=== PATIENT | female | born 1955 | race Caucasian/White ===

== ENCOUNTER 2020-12-18 16:56 | Emergency (ER) | payer MEDICAID, SELFPAY ==
--- NOTE | ~2020-12-18 | XR_ITS ---
EXAMINATION: XR PELVIS CLINICAL INFORMATION: Fall COMPARISON: Lumbar spine radiographs 05/09/2013 TECHNIQUE: AP view of the pelvis. FINDINGS: The visualized left femur is grossly abnormal with sclerotic change overlying the area of the greater trochanter. This may be due to remote trauma. No definite acute fracture is seen on this single view. Degenerative changes present in the hips, right greater than left. XR/XR pelvis 1-2V IMPRESSION: No definite acute pelvic fracture is seen. The abnormal left femur is probably chronic. However, If there is concern about the left hip, would recommend left hip films.
[2020-12-18 17:01] VITALS: BP 126/62; PULSE 60; RESP 18; TEMP 37.1; O2SAT 96; BMI 25.8
--- NOTE | 2020-12-18 17:26 | ED.FALL ---
HPI - Fall General Chief Complaint: Fall Stated Complaint: fall Time Seen by Provider: 12/18/20 17:08 Source: EMS Mode of arrival: EMS Limitations: no limitations History of Present Illness HPI Narrative: 65 yo female with past medical history of bipolar 1 disorder, brain damage, anoxic, cataracts, concussion, dysphagia, etoh abuse, GERD (gastroesophageal reflux disease) , Idiopathic generalized epilepsy, kyphosis (acquired) (postural), osteoporosis, presbyopia, spondylosis, urinary incontinence, UTI (urinary tract infection) here with complaints of left hip pain. Unfortunately the patient is not a reliable historian due to previous brain injury. Called and spoke to nurse at [facility]. Per nursing patient was sitting in her wheelchair and slipped out of the wheelchair landing on her buttocks. This was witnessed by staff. There was no head injury or loss of consciousness. At that time she was complaining of left hip pain. This occurred at 0245 this morning. Per staff patient is at her mental status baseline MD complaint: fall Related Data Allergies Allergy/AdvReac Type Severity Reaction Status Date / Time Fish Containing Products Allergy Mild UNKNOWN Unverified 07/01/20 16:50 [Fish Product Derivatives] lactose [Lactose] Allergy Mild UNKNOWN Unverified 07/01/20 16:50 Shellfish Allergy Mild UNKNOWN Uncoded 07/01/20 16:50 Review of Systems Review of Systems: Yes Unobtainable due to mental status (Patient is confused which is her baseline) Neurologic: Denies Abnormal speech present and Reports confusion Psychiatric: Psychiatric: Reports confusion PMFSH Past Medical History Attestation statement: The following information was validated with the patient. Source: old records reviewed and nursing notes reviewed Medical History (Updated 12/18/20 @ 18:27 by Serge Feldman NP) Bipolar 1 disorder Brain damage, anoxic Cataract Concussion Dysphagia ETOH abuse GERD (gastroesophageal reflux disease) Idiopathic generalized epilepsy Kyphosis (acquired) (postural) Osteoporosis Presbyopia Spondylosis Urinary incontinence UTI (urinary tract infection) Social History Social History Alcohol intake: former Smoking Status: Never smoker Use of substances other than those prescribed or required for medical reasons: No Advance Directives: No Advance Directives Information Provided: No Physical Exam Vital Signs: Vital Signs: Last Vital Signs Temp 98.7 F 12/18/20 17:01 Pulse 60 12/18/20 17:01 Resp 18 12/18/20 17:01 BP 126/62 12/18/20 17:01 Pulse Ox 96 12/18/20 17:01 Body Mass Index 25.8 Const: Other: Limited exam due to baseline mental status General: no acute distress and confusion Orientation/consciousness: confusion Limitations: altered mental status HENMT: Head: Yes normal to inspection Ears: hearing grossly normal bilaterally General nose exam: Normal external nose present Face and sinus: Yes normal facial exam Mouth: Normal oral and palatal mucosa present Throat: Yes posterior oropharynx normal Eyes: General: appearance normal, both eyes and all related structures Pupils: Equal, round and reactive pupils present Neck: Other: No midline tenderness, step-offs or deformities. Full range of motion Neck: Yes normal visual inspection Chest: Chest palpation & inspection: normal inspection of the chest Resp: Effort & Inspection: normal respiratory effort Auscultation: clear to auscultation bilaterally Cardio: Rate: regular rate Rhythm: regular rhythm Peripheral pulses: Peripheral pulses 2+ throughout GI: Inspection: Yes normal to inspection Palpation (GI): Soft to palpation and nontender Auscultation: normal bowel sounds Back/Spine/Pelvis: Thoracic/Lumbar Spine: thoracic and lumbar spine normal to inspection Skin: General skin exam: no rashes or lesions noted Neuro: General: moves all extremities, normal sensation to monofilament and confusion Cranial nerves: Yes Equal, round and reactive pupils present Speech: No Abnormal speech present Gait exam (Neuro): Normal gait present Sensory Exam: Normal double simultaneous stimulation for sensation Extrem: Other: Patient is able to move the left lower extremity through full range of motion with no pain elicited. Neurovascularly intact distally. No obvious deformity, shortening or rotation. On exam the patient has no palpable tenderness over the left hip or pelvis and the pelvis is stable. General: Yes normal to inspection Right upper extremity: normal to inspection and full ROM Left upper extremity: normal to inspection and full ROM Right lower extremity: normal to inspection and full ROM Left lower extremity: normal to inspection and full ROM Course Course Course Narrative: Mechanical fall witnessed by staff with no head injury. Patient then at her mental status baseline per staff at [facility]. Will check imaging of left hip due to reports of trauma and pain reported to staff although no pain here on exam. 183-X-rays show No definite acute pelvic fracture is seen. The abnormal left femur is probably chronic. However, If there is concern about the left hip, would recommend left hip films. Unfortunately patient refusing to allow us to do additional hip films. Reviewed films with Dr Neal who agrees no acute fracture or dislocation. I re-evaluated the patient and she appears in NAD, with no palpable tenderness. Plan for discharge back to [facility]. MDM - Fall Medical Records Attestation: I reviewed the patient's medical records. Lab Data Attestation: I reviewed the patient's lab results. Imaging Data hip x-ray: Attestation: I personally reviewed and interpreted this imaging study as follows: Radiologist's impression: [facility] [place], [place] [address]STqf ReportSigned Patient: Abby GarciaMR#: [id number]: [id number]:[id number]/Sex: 65 / FADM Date: 12/18/20Loc: HO.EDAttending Dr: Ordering Physician: SERGE FELDMAN NP Date of Service: 12/18/20 Procedure(s): XR pelvis 1-2V Accession Number(s): [id number] cc: SERGE FELDMAN NP~ EXAMINATION: XR PELVIS CLINICAL INFORMATION: Fall COMPARISON: Lumbar spine radiographs 05/09/2013 TECHNIQUE: AP view of the pelvis. FINDINGS: The visualized left femur is grossly abnormal with sclerotic change overlying the area of the greater trochanter. This may be due to remote trauma. No definite acute fracture is seen on this single view. Degenerative changes present in the hips, right greater than left. XR/XR pelvis 1-2V IMPRESSION: No definite acute pelvic fracture is seen. The abnormal left femur is probably chronic. However, If there is concern about the left hip, would recommend left hip films. Discharge Plan Discharge Clinical Impression: Contusion Qualifiers: Encounter type: initial encounter Contusion area: hip Patient Disposition: Xfer SNF Instructions: Hip Contusion (ED) Additional Instructions: X-rays show no acute fracture or dislocation Referrals: Fitz Hernandez DO [Primary Care Provider] - 2 days Interventions: ED Discharge Assessment Last Done: 12/18/20 20:00 Discharge Date/Time: 12/18/20 20:05
--- NOTE | 2020-12-18 18:16 | PC.NURSE ---
pt appears to be sitting at the edge of the bed when this rn waking by, pt placed back safely into stretcher by this rn and pct. pt denies any pain att.
== END 2020-12-18 20:05 | disposition skilled nursing facility (03) ==
PROVIDERS: Emergency Provider Internal Medicine; PCP Hospitalist
DX: S70.02XA Contusion of left hip, initial encounter (principal); W05.0XXA Fall from non-moving wheelchair, initial encounter; F31.9 Bipolar disorder, unspecified; Z87.820 Personal history of traumatic brain injury; F10.10 Alcohol abuse, uncomplicated; Z87.440 Personal history of urinary (tract) infections; Y93.9 Activity, unspecified; Y92.129 Unspecified place in nursing home as the place of occurrence of the external cause; Y99.9 Unspecified external cause status
CPT/HCPCS: 72170; 99283; 99284

== ENCOUNTER 2021-01-04 07:39 | Outpatient (REF) | payer MEDICAID, SELFPAY ==
--- NOTE | ~2021-01-04 | CT_ITS ---
EXAMINATION: CT HIP WITHOUT CONTRAST, LEFT CLINICAL INFORMATION: Left hip pain status post fall COMPARISON: Left hip x-ray 12/18/2020 TECHNIQUE: Axial 2 mm thin and reformatted 2 mm thin sagittal and coronal images of left hip were obtained. This CT examination was performed using dose optimization techniques as appropriate, variously including the following: *Automated exposure control *Adjustment of mA and/or kV according to patient size (this includes techniques or standardized protocols for targeted exams where dose is matched to indication/reason for exam; i.e. extremities or head) *Use of iterative reconstruction technique DLP: 228 mGy-cm FINDINGS: There is a comminuted burst fracture involving the entire left acetabular roof, anterior and posterior and superior segments. There is mild to moderate displacement of superior acetabular fracture fragments.. There is abnormal joint effusion. The left femoral head, neck and the proximal femur is intact. There is hypertrophic bony changes involving the greater tuberosity likely related to old injury. Also visualized is comminuted fracture involving the left inferior pubic rami/ischial tuberosity junction. Adjacent to the fracture is a hypodensity seen in the soft tissues questioning small hemorrhage. CT/CT hip LT wo con IMPRESSION: Comminuted burst fracture involving the internal left acetabular roof including the anterior, posterior and superior segments. There is displacement of the superior fracture fragments. There is abnormal joint effusion. Comminuted acute fracture junction of inferior pubic ramus and ischium. Suspect small inferior 1.5 cm hematoma. There is no fracture involving the left femur. There is hypertrophic bony changes along the left greater trochanter likely old healed injury.
== END 2021-01-04 07:40 | disposition home or self-care (01) ==
LOC: HO.CT 07:39
PROVIDERS: PCP Hospitalist; Visit Provider Hospitalist
DX: M25.552 Pain in left hip (principal)
CPT/HCPCS: 73700

== ENCOUNTER 2021-01-10 13:20 | Outpatient (REF) | payer MEDICAID, SELFPAY ==
--- NOTE | ~2021-01-10 | US_ITS ---
EXAMINATION: US BREAST, BILATERAL CLINICAL INFORMATION: Unable to perform mammography COMPARISON: December 23, 2019 and November 21, 2018 TECHNIQUE: High-resolution grayscale sonography of the breasts was performed by a technologist with a high-frequency linear transducer following a standardized protocol. All 4 quadrants and the axilla were examined on each side. The retroareolar region was examined bilaterally FINDINGS: On the images submitted for review, no suspicious mass, area of architectural distortion, complex cyst or other sonographically suspicious lesion is identified in either breast. US/US breast LT complete IMPRESSION: No sonographic evidence of malignancy in either breast. ASSESSMENT: Right breast: BI-RADS 1 - negative.. Left breast: BI-RADS 1 - negative. RECOMMENDATIONS: Continued yearly screening. This patient?s information was entered in to a reminder system with a target due date for their next mammogram.
--- NOTE | ~2021-01-10 | US_ITS ---
EXAMINATION: US BREAST, right CLINICAL INFORMATION: Unable to perform mammography COMPARISON: December 23, 2019 and November 21, 2018 TECHNIQUE: High-resolution grayscale sonography of the breasts was performed by a technologist with a high-frequency linear transducer following a standardized protocol. All 4 quadrants and the axilla were examined on each side. The retroareolar region was examined bilaterally FINDINGS: On the images submitted for review, no suspicious mass, area of architectural distortion, complex cyst or other sonographically suspicious lesion is identified in either breast. US/US breast RT complete IMPRESSION: No sonographic evidence of malignancy in either breast. ASSESSMENT: Right breast: BI-RADS 1 - negative.. Left breast: BI-RADS 1 - negative. RECOMMENDATIONS: Continued yearly screening. This patient?s information was entered in to a reminder system with a target due date for their next mammogram.
== END 2021-01-10 13:21 | disposition home or self-care (01) ==
LOC: HO.MAMMO 13:20
PROVIDERS: Visit Provider Hospitalist
DX: Z12.39 Encounter for other screening for malignant neoplasm of breast (principal)
CPT/HCPCS: 76641

== ENCOUNTER 2021-06-07 10:18 | Outpatient (REF) | payer MEDICAID, SELFPAY ==
--- NOTE | ~2021-06-07 | MM_ITS ---
EXAMINATION: BONE DENSITOMETRY CLINICAL INDICATION: Osteoporosis. COMPARISON: Previous BD dated 06/03/2019 and baseline BD dated 12/03/2014. TECHNIQUE: Using a Photodigm DXA System (software version: 13.1) manufactured by [employer], dual-energy x-ray absorptiometry was performed of the lumbar spine and left hip. The images are of good technical quality. Summary results are attached. FINDINGS: AP SPINE L1-L4 (excluding L3): The data of L1-L4 has been changed to exclude the L3 vertebral body, because degenerative changes and/or possible vertebral augmentation at this level may cause overestimation of lumbar spine density. Current: BMD 0.969 g/cm2, Z-score -0.1, T-score -1.7, osteopenia, 4.4% increase from previous, 3.6% increase from baseline (<5% change is not significant). Prior: BMD 0.928 g/cm2. Baseline: BMD 0.935 g/cm2. LEFT FEMUR, NECK: Current: BMD 0.998 g/cm2, Z-score 1.2, T-score -0.3, normal. Prior: BMD 0.857 g/cm2. Baseline: BMD 0.992 g/cm2. LEFT FEMUR, TOTAL: Current: BMD 0.886 g/cm2, Z-score 0.2, T-score -1.0, normal, 29.1% decrease from previous, 43.8% decrease from baseline (<5% change is not significant). Prior: BMD 1.250 g/cm2. Baseline: BMD 1.577 g/cm2. IDENTIFIED RISK FACTORS: Height loss, osteoporosis, history of fracture (adult), anticonvulsant, menopause. HISTORY OF FRACTURE: Humerus. Other. There is increased intravertebral body density noted at L3 when compared with prior exam 2019. This could be related to changes from vertebral augmentation. If vertebral augmentation is not been performed, then further imaging of the spine with plain films or noncontrast CT lumbar spine would be suggested to assess for bony lesion. MEDICATIONS: Calcium supplements or multivitamin, vitamin D, bisphosphonates. MM/XR DEXA axial skeleton IMPRESSION: 1. Increased density within the vertebral body L3, new from prior exam 2019. Recommend correlation with past history, such as vertebral augmentation at this level to explain the finding. Otherwise, if clinically indicated, further evaluation of the lumbar spine would be recommended with radiographs or noncontrast CT lumbar spine to further assess. 2. DIAGNOSIS: Osteopenia based on the lowest T-score value of -1.7 in the lumbar spine applying World Health Organization criteria. 3. 10-YEAR FRACTURE RISK PREDICTION, FRAX: Major osteoporotic fracture (clinical spine, forearm, hip or shoulder) 10.6%. Hip fracture 0.4%. 4. Treatment Recommendations: NOF guidelines recommend consideration for treatment in postmenopausal women and men age 50 and older presenting with the following: -A hip or vertebral (clinical or morphometric) fracture. -T-score less than or equal to -2.5 at the femoral neck or spine after appropriate evaluation to exclude secondary causes. -Low bone mass at the hip or spine and a 10-year fracture probability by FRAX of greater than or equal to 3% for hip fracture or greater than or equal to 20% for major osteoporotic fracture based on the [place] adapted WHO algorithm. 5. Other Recommendations: All treatment decisions require clinical judgment and consideration of individual patient factors, including patient preferences, comorbidities, previous drug use, risk factors not captured in the FRAX model (e.g. frailty, falls, vitamin D deficiency, increased bone turnover, interval significant decline in bone density) and possible under or overestimation of fracture risk by FRAX. Additional medical evaluation for secondary cause of low bone mineral density may be appropriate. FUTURE SCAN RECOMMENDATION: People with diagnosed cases of osteoporosis or at high risk for fracture should have regular bone mineral density tests. For patients eligible for Medicare, routine testing is allowed once every 2 years. The testing frequency can be increased to one year for patients who have rapidly progressing disease, those who are receiving or discontinuing medical therapy to restore bone mass, or have additional risk factors.
== END 2021-06-07 10:19 | disposition home or self-care (01) ==
LOC: HO.MAMMO 10:18
PROVIDERS: PCP Hospitalist; Visit Provider Hospitalist
DX: Z13.820 Encounter for screening for osteoporosis (principal); M81.0 Age-related osteoporosis without current pathological fracture; Z78.0 Asymptomatic menopausal state; Z79.899 Other long term (current) drug therapy; Z87.81 Personal history of (healed) traumatic fracture
CPT/HCPCS: 77080

== ENCOUNTER 2022-01-13 11:58 | Outpatient (REF) | payer MEDICAID, SELFPAY ==
--- NOTE | ~2022-01-13 | US_ITS ---
EXAMINATION: US BREAST, BILATERAL CLINICAL INFORMATION: Patient unable to tolerate mammography and is wheelchair bound. Bilateral breast ultrasound. COMPARISON: January 10, 2021, December 23, 2019, and November 21, 2018 MAMMOGRAPHY: Patient's last mammogram was February 03, 2015 TECHNIQUE: High-resolution grayscale sonography of the breasts was performed by a technologist with a high-frequency linear transducer following a standardized protocol. All 4 quadrants and the axilla were examined on each side. The retroareolar region was examined bilaterally FINDINGS: On the images submitted for review, no suspicious mass, area of architectural distortion, complex cyst or other sonographically suspicious lesion is identified in either breast. US/US breast RT complete IMPRESSION: No sonographic evidence of malignancy in either breast. ASSESSMENT: Right breast: BI-RADS 1 - negative.. Left breast: BI-RADS 1 - negative. RECOMMENDATIONS: Continue mammographic screening. This patient?s information was entered in to a reminder system with a target due date for their next mammogram.
--- NOTE | ~2022-01-13 | US_ITS ---
EXAMINATION: US BREAST, BILATERAL CLINICAL INFORMATION: Patient unable to tolerate mammography and is wheelchair bound. Bilateral breast ultrasound. COMPARISON: January 10, 2021, December 23, 2019, and November 21, 2018 MAMMOGRAPHY: Patient's last mammogram was February 03, 2015 TECHNIQUE: High-resolution grayscale sonography of the breasts was performed by a technologist with a high-frequency linear transducer following a standardized protocol. All 4 quadrants and the axilla were examined on each side. The retroareolar region was examined bilaterally FINDINGS: On the images submitted for review, no suspicious mass, area of architectural distortion, complex cyst or other sonographically suspicious lesion is identified in either breast. US/US breast LT complete IMPRESSION: No sonographic evidence of malignancy in either breast. ASSESSMENT: Right breast: BI-RADS 1 - negative.. Left breast: BI-RADS 1 - negative. RECOMMENDATIONS: Continue mammographic screening. This patient?s information was entered in to a reminder system with a target due date for their next mammogram.
== END 2022-01-13 11:59 | disposition home or self-care (01) ==
LOC: HO.MAMMO 11:58
PROVIDERS: Visit Provider Hospitalist
DX: Z12.31 Encounter for screening mammogram for malignant neoplasm of breast (principal); Z99.3 Dependence on wheelchair
CPT/HCPCS: 76641

== ENCOUNTER 2022-04-07 14:50 | Emergency (ER) | payer MEDICAID, SELFPAY ==
--- NOTE | ~2022-04-07 | CT_ITS ---
EXAMINATION: CT FACIAL BONES WITHOUT CONTRAST CLINICAL INFORMATION: Trauma. Rule out fracture. COMPARISON: None TECHNIQUE: Axial images through the facial bones without contrast. Sagittal and coronal technologist workstation were performed. This CT examination was performed using dose optimization techniques as appropriate, variously including the following: *Automated exposure control *Adjustment of mA and/or kV according to patient size (this includes techniques or standardized protocols for targeted exams where dose is matched to indication/reason for exam; i.e. extremities or head) *Use of iterative reconstruction technique DLP: 282 mGy-cm FINDINGS: Exam is limited due to patient positioning. No fracture or dislocation is seen. There is complete soft tissue opacification of the right maxillary and frontal sinus and partial soft tissue opacification of the right side of the sphenoid sinus. There is adjacent expansion of the bone and cortical thickening. This probably represents severe chronic sinusitis. Differential would include a primary bone lesion such as fibrous dysplasia and secondary sinusitis. There is abnormal soft tissue opacification of the right ostiomeatal complex. There is partial soft tissue opacification of the right ethmoid air cells. There is soft tissue opacification of the right frontoethmoidal recess There is bilateral zaire bullosa. There is deviation of the nasal septum to the left. Left-sided paranasal sinuses are clear. There is poor dentition. Mastoid air cells and middle ears are clear. The temporomandibular joints are normal. There is evidence of generalized atrophy. Visualized intracranial structures are otherwise normal. There is evidence of atherosclerotic disease. CT/CT facial bones wo con IMPRESSION: Limited exam due to patient positioning. No acute fracture or dislocation. Complete soft tissue opacification of the right frontal, maxillary and right side of the sphenoid sinus and changes of the adjacent bone. This probably represents chronic sinusitis. Primary bone process such as fibrous dysplasia of the bone and secondary sinusitis should also be noted.
[2022-04-07 14:54] VITALS: BP 117/56; BP 95/56; PULSE 62; PULSE 70; RESP 18; TEMP 36.5; O2SAT 94; BMI 22.0
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
[2022-04-07 15:47] LABS: MANUAL DIFF FLAG NO
[2022-04-07 15:50] LABS: Basophils Percent Auto 0.5 % (0-2); Eosinophils Absolute Auto 0.1 X10*3/uL (0.0-0.4); Eosinophils Percent Auto 1.4 % (0-4); Hematocrit 34.8 % (37.0-47.0); Hemoglobin 11.4 g/dl (12.0-16.0); Imm Gran Abs Auto 0.01 X10*3/uL (0.00-0.03); Imm Gran Pct Auto 0.2 % (0.0-0.4); Lymphocytes Absolute Auto 1.9 X10*3/uL (1.2-4.9); Lymphocytes Percent Auto 30.3 % (20-40); Mean Corpuscular HGB Conc 32.8 g/dl (31.0-35.0); Mean Corpuscular Volume 97.8 fL (80.0-98.0); Mean Platelet Volume 10.2 fL (9.4-12.3); Monocytes Absolute Auto 0.8 X10*3/uL (0.1-1.2); Monocytes Percent Auto 12.5 % (2-11); Neutrophils Absolute Auto 3.4 x10*3/uL (2.0-8.3); Neutrophils Percent Auto 55.1 % (45-73); Platelet Count 166 X10*3/uL (160-400); Red Blood Count 3.56 X10*6/uL (4.20-5.50); Red Cell Distribution Width 12.2 % (11.0-16.0); White Blood Count 6.2 X10*3/uL (4.8-10.8)
[2022-04-07 16:09] LABS: Alanine Aminotransferase 16 U/L (0-31); Albumin Level 3.3 g/dL (3.5-5.0); Alkaline Phosphatase 72 U/L (39-117); Anion Gap 12 (12-20); Aspartate Amino Transferase 17 U/L (5-31); Bilirubin Total 0.4 mg/dL (0.0-1.0); Blood Urea Nitrogen 17 mg/dL (9-16); Calcium 8.3 mg/dL (8.4-10.2); Carbon Dioxide 26 mmol/L (22-29); Chloride 107 mmol/L (96-108); Creatinine Clr Calc Pharmacy 78.2; Estimated Glomerular Filt Rate > 60; Glucose Random 66 mg/dL (60-115); Potassium 4.1 mmol/L (3.3-5.1); Sodium 141 mmol/L (135-145); Total Protein 6.3 g/dL (6.5-8.0)
[2022-04-07 16:14] LABS: COVID-19 Test Negative (Negative)
--- NOTE | 2022-04-07 17:37 | PC.NURSE ---
Report given to Brian cedeno.
--- NOTE | 2022-04-07 17:42 | PC.NURSE ---
This Us/Pct called [facility] at 1753 and booked a bls Transport for patient to go back to [facility],per Mirlande MURPHY. Spoke with Iva from [facility] around 1900. Charge and rn aware
[2022-04-07 17:44] VITALS: BP 105/62; PULSE 65; RESP 18; O2SAT 95
== END 2022-04-07 20:12 | disposition skilled nursing facility (03) ==
PROVIDERS: Physician Assistant; Emergency Provider Emergency Medicine; PCP Hospitalist
DX: R22.0 Localized swelling, mass and lump, head (principal); Z20.822 Contact with and (suspected) exposure to COVID-19; Z87.820 Personal history of traumatic brain injury; Z79.899 Other long term (current) drug therapy
CPT/HCPCS: 70486; 80053; 85025; 87635; 99283; 99284

== ENCOUNTER 2023-02-12 12:04 | Outpatient (REF) | payer MEDICARE, MEDICAID, SELFPAY ==
--- NOTE | ~2023-02-12 | US_ITS ---
EXAMINATION: US SCREENING ULTRASOUND BREAST, BILATERAL CLINICAL INFORMATION: Patient unable to tolerate mammography. Annual screening breast ultrasound. COMPARISON: Bilateral breast ultrasound 01/13/2022, 01/10/2021, 12/23/2019, 11/21/2018 TECHNIQUE: Ultrasound is performed using grayscale imaging and color Doppler. Imaging is performed to include the four quadrants and retroareolar region. Both breasts are imaged. FINDINGS: Right breast: There is no suspicious finding by ultrasound. There is no cystic or solid mass or focal architectural abnormality. No skin thickening. No edema tracking in soft tissue planes. Left breast: There is no suspicious finding by ultrasound. There is no cystic or solid mass or focal architectural abnormality. No skin thickening. No edema tracking in soft tissue planes. US/US breast RT complete IMPRESSION: -Normal bilateral screening breast ultrasound ASSESSMENT: BI-RADS 1: Negative RECOMMENDATION: Annual bilateral breast screening is able This patient's information was entered into a reminder system with a target due date for their next breast imaging.
--- NOTE | ~2023-02-12 | US_ITS ---
EXAMINATION: US SCREENING ULTRASOUND BREAST, BILATERAL CLINICAL INFORMATION: Patient unable to tolerate mammography. Annual screening breast ultrasound. COMPARISON: Bilateral breast ultrasound 01/13/2022, 01/10/2021, 12/23/2019, 11/21/2018 TECHNIQUE: Ultrasound is performed using grayscale imaging and color Doppler. Imaging is performed to include the four quadrants and retroareolar region. Both breasts are imaged. FINDINGS: Right breast: There is no suspicious finding by ultrasound. There is no cystic or solid mass or focal architectural abnormality. No skin thickening. No edema tracking in soft tissue planes. Left breast: There is no suspicious finding by ultrasound. There is no cystic or solid mass or focal architectural abnormality. No skin thickening. No edema tracking in soft tissue planes. US/US breast LT complete IMPRESSION: -Normal bilateral screening breast ultrasound ASSESSMENT: BI-RADS 1: Negative RECOMMENDATION: Annual bilateral breast screening is able This patient's information was entered into a reminder system with a target due date for their next breast imaging.
== END 2023-02-12 12:05 | disposition home or self-care (01) ==
LOC: HO.MAMMO 12:04
PROVIDERS: Visit Provider Hospitalist
DX: Z12.31 Encounter for screening mammogram for malignant neoplasm of breast (principal)
CPT/HCPCS: 76641

== ENCOUNTER 2023-06-12 13:20 | Outpatient (REF) | payer MEDICARE, MEDICAID, SELFPAY ==
--- NOTE | ~2023-06-12 | MM_ITS ---
EXAMINATION: BONE DENSITOMETRY CLINICAL INDICATION: Osteoporosis. COMPARISON: Previous BD dated 06/07/2021 and baseline BD dated 12/03/2014. TECHNIQUE: Using a [employer] DXA System (software version: 13.1) manufactured by [employer], dual-energy x-ray absorptiometry was performed of the lumbar spine and left hip. The images are of good technical quality. Summary results are attached. FINDINGS: LEFT FEMUR, NECK: Current: BMD 0.929 g/cm2, Z-score 0.6, T-score -0.8, normal. Prior: BMD 0.998 g/cm2. Baseline: BMD 0.992 g/cm2. LEFT FEMUR, TOTAL: Current: BMD 0.878 g/cm2, Z-score 0.0, T-score -1.0, normal, 0.9% decrease from previous, 44.3% decrease from baseline (<5% change is not significant). Prior: BMD 0.886 g/cm2. Baseline: BMD 1.577 g/cm2. AP SPINE L1-L2 (excluding L3 and L4): The data of L1-L4 has been changed to exclude the L3 and L4 vertebral bodies, because degenerative sclerosis at these levels may cause overestimation of lumbar spine density. Current: BMD 1.028 g/cm2, Z-score 0.2, T-score -1.1, osteopenia, 2.6% increase from previous, 4.9% increase from baseline (<5% change is not significant). Prior: BMD 1.002 g/cm2. Baseline: BMD 0.980 g/cm2. IDENTIFIED RISK FACTORS: Menopause, height loss, anticonvulsant, osteoporosis. HISTORY OF FRACTURE: None listed. MEDICATIONS: Multivitamin, vitamin D, bisphosphonate. MM/XR DEXA axial skeleton IMPRESSION: 1. DIAGNOSIS: Osteopenia based on the lowest T-score value of -1.1 in the lumbar spine applying World Health Organization criteria. 2. 10-YEAR FRACTURE RISK PREDICTION, FRAX: Not performed in this patient on estrogen or bone building treatments. 3. Treatment Recommendations: NOF guidelines recommend consideration for treatment in postmenopausal women and men age 50 and older presenting with the following: -A hip or vertebral (clinical or morphometric) fracture. -T-score less than or equal to -2.5 at the femoral neck or spine after appropriate evaluation to exclude secondary causes. -Low bone mass at the hip or spine and a 10-year fracture probability by FRAX of greater than or equal to 3% for hip fracture or greater than or equal to 20% for major osteoporotic fracture based on the [place] adapted WHO algorithm. 4. Other Recommendations: All treatment decisions require clinical judgment and consideration of individual patient factors, including patient preferences, comorbidities, previous drug use, risk factors not captured in the FRAX model (e.g. frailty, falls, vitamin D deficiency, increased bone turnover, interval significant decline in bone density) and possible under or overestimation of fracture risk by FRAX. Additional medical evaluation for secondary cause of low bone mineral density may be appropriate. FUTURE SCAN RECOMMENDATION: People with diagnosed cases of osteoporosis or at high risk for fracture should have regular bone mineral density tests. For patients eligible for Medicare, routine testing is allowed once every 2 years. The testing frequency can be increased to one year for patients who have rapidly progressing disease, those who are receiving or discontinuing medical therapy to restore bone mass, or have additional risk factors.
== END 2023-06-12 13:21 | disposition home or self-care (01) ==
LOC: HO.MAMMO 13:20
PROVIDERS: PCP Hospitalist; Visit Provider Hospitalist
DX: Z13.820 Encounter for screening for osteoporosis (principal); M81.0 Age-related osteoporosis without current pathological fracture; Z78.0 Asymptomatic menopausal state
CPT/HCPCS: 77080

== ENCOUNTER → 2023-06-12 13:30 | Outpatient (BNV) | payer MEDICARE, MEDICAID, SELFPAY | PROVIDERS: PCP Hospitalist; Visit Provider Radiology Diagnostic Radiology | DX: M85.88 Other specified disorders of bone density and structure, other site (principal) | CPT/HCPCS: 77080 ==

== ENCOUNTER 2023-10-02 13:27 | Outpatient (REF) | payer MEDICARE, MEDICAID, SELFPAY ==
--- NOTE | ~2023-10-02 | XR_ITS ---
EXAMINATION: XR HAND, LEFT CLINICAL INFORMATION: Swelling and pain COMPARISON: None available. TECHNIQUE: PA, lateral, and oblique views of the left hand. FINDINGS: Mild degenerative changes first carpometacarpal joint. Mild interphalangeal joint space narrowings. Mild radiocarpal joint space narrowing and sclerosis. No fracture, dislocation or focal soft tissue swelling. XR/XR hand LT 2V IMPRESSION: Mild degenerative changes.
== END 2023-10-02 13:28 | disposition home or self-care (01) ==
LOC: HO.XRAY 13:27
PROVIDERS: PCP Hospitalist; Visit Provider Hospitalist
DX: R60.0 Localized edema (principal); M79.642 Pain in left hand
CPT/HCPCS: 73120

== ENCOUNTER 2024-04-28 11:54 | Outpatient (REF) | payer MEDICARE, MEDICAID, SELFPAY ==
--- NOTE | ~2024-04-28 | US_ITS ---
EXAMINATION: US SCREENING ULTRASOUND BREAST, BILATERAL CLINICAL INFORMATION: Patient unable to tolerate mammography. Annual screening breast ultrasound. COMPARISON: Bilateral breast ultrasound 02/12/2023, 01/13/2022, 01/10/2021, 12/23/2019, 11/21/2018 TECHNIQUE: Ultrasound is performed using grayscale imaging and color Doppler. Imaging is performed to include the four quadrants and retroareolar region. Both breasts are imaged. FINDINGS: Right breast: There is no suspicious finding by ultrasound. There is no cystic or solid mass or focal architectural abnormality. No skin thickening. No edema tracking in soft tissue planes. Left breast: There is no suspicious finding by ultrasound. There is no cystic or solid mass or focal architectural abnormality. No skin thickening. No edema tracking in soft tissue planes. US/US breast BI complete IMPRESSION: -Normal bilateral screening breast ultrasound ASSESSMENT: BI-RADS 1: Negative RECOMMENDATION: Annual bilateral breast screening is able This patient's information was entered into a reminder system with a target due date for their next breast imaging.
== END 2024-04-28 11:55 | disposition home or self-care (01) ==
LOC: HO.MAMMO 11:54
PROVIDERS: PCP Hospitalist; Visit Provider Hospitalist
DX: M47.812 Spondylosis without myelopathy or radiculopathy, cervical region (principal)
CPT/HCPCS: 76641

== ENCOUNTER → 2024-04-28 12:00 | Outpatient (BNV) | payer MEDICARE, MEDICAID, SELFPAY | PROVIDERS: PCP Hospitalist; Visit Provider Radiology Diagnostic Radiology | DX: Z12.31 Encounter for screening mammogram for malignant neoplasm of breast (principal) | CPT/HCPCS: 76641 ==

== ENCOUNTER 2025-06-17 11:57 | Outpatient (REF) | payer MEDICARE, MEDICAID, SELFPAY ==
--- NOTE | ~2025-06-17 | US_ITS ---
EXAMINATION: US SCREENING ULTRASOUND BREAST, BILATERAL CLINICAL INFORMATION: Dense breasts on mammography. Screening ultrasound. Patient unable to tolerate mammography. Annual screening breast ultrasound. COMPARISON: Priors on PACS. TECHNIQUE: Ultrasound is performed using grayscale imaging and color Doppler. Imaging is performed to include the four quadrants and retroareolar region. Both breasts are imaged. FINDINGS: Right breast: There is no suspicious finding by ultrasound. There is no solid mass or focal architectural abnormality. Left breast: There is no suspicious finding by ultrasound. There is no solid mass or focal architectural abnormality. US/US breast BI complete IMPRESSION: No suspicious findings on screening breast ultrasound. ASSESSMENT: BI-RADS 1 - Negative RECOMMENDATION: 1 year F/U This patient's information was entered into a reminder system with a target due date for their next mammogram. Electronically signed by: Mag Jones DO 06/17/2025 03:30 PM EDT
--- OUTSIDE RECORDS SUMMARY | 2025-06-17 14:35 | XMS_ITS | Clinical Summary ---
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 (CMS/HCC V24, CMS/HCC V28); Bipolar disorder, unspecified (CMS/HCC V24, CMS/HCC V28); Other nursing home (current) drug therapy from Last 3 Months Social History Tobacco Use Types Packs/Day Years Used Date Smoking Tobacco: Never Assessed Comments Unknown Sex and Gender Information Value Date Recorded Sex Assigned at Not on file Legal Sex Female 12:29 PM EST Gender Identity Not on file Sexual Orientation Not on file Plan of Treatment Health Maintenance Due Date Last Done Comments Breast Cancer Screening 1955 DTaP,Tdap,and Td Vaccines (1 - Tdap) 1976 Pneumococcal Vaccine: 50+ Ye ars (1 of 1 - PCV) 2007 Zoster Vaccines (1 of 2) 2007 Colorectal Cancer Screening: Colonoscopy 09/12/2022 Hepatitis C Screening 09/12/2022 Medicare Annual Wellness Visit 09/12/2022 Osteoporosis Screening (Bone Density Screening) 09/12/2022 Social Influencers of Health Screening 09/12/2022 Falls Risk Assessment 2022 COVID-19 Vaccine ( - 2023-2 5 season) 2024 Depression Screening 10/15/2024 Influenza Vaccine (#1) 2025 Cholesterol Screening (Lipid Panel) 04/08/2030 04/08/2025 RSV Immunization Adult Patie nts (1 - 1-dose 75+ series) 2032 HIB Vaccines Aged Out No longer eligi ble based on patient's age to complete this topic HPV Vaccines Aged Out No longer eligi ble based on patient's age to complete this topic Hepatitis A Vaccines Aged Out No long er eligible based on patient's age to complete this topic Hepatitis B Vaccines Aged Out No long er eligible based on patient's age to complete this topic IPV Vaccines Aged Out No longer eligi ble based on patient's age to complete this topic MMR Vaccines Aged Out No longer eligi ble based on patient's age to complete this topic Meningococcal ACWY Vaccine Aged Out N o longer eligible based on patient's age to complete this topic Meningococcal B Vaccine Aged Out No l onger eligible based on patient's age to complete this topic RSV Immunization Patients Un jorden 20 months Aged Out No longer eligible b ased on patient's age to complete this topic Varicella Vaccines Aged Out No longer eligible based on patient's age to complete this topic Procedures Procedure Name Priority Date/Time Associated Diagnosis Comments COMPLETE BLOOD COUNT Routine 05/26/2025 6:56 AM EDT Age-related osteoporosis without current pathological fracture SST - GOLD Routine 04/08/2025 6:36 AM EDT Alcohol use, 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 (CMS/HCC V24, CMS/HCC V28) Bipolar disorder, unspecified (CMS/HCC V24, CMS/HCC V28) Other nursing home (current) drug therapy AMMONIA Routine 04/08/2025 6:36 AM EDT Alcohol use, 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 (CMS/HCC V24, CMS/HCC V28) Bipolar disorder, unspecified (CMS/HCC V24, CMS/HCC V28) 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 CARBAMAZEPINE LEVEL, TOTAL Routine 04/08/2025 6:36 AM EDT Alcohol use, 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 (CMS/HCC V24, CMS/HCC V28) Bipolar disorder, unspecified (CMS/HCC V24, CMS/HCC V28) Other nursing home (current) drug therapy LIPID PANEL WITH REFLEX TO DIRECT LDL Routine 04/08/2025 6:36 AM EDT Alcohol use, 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 (CMS/HCC V24, CMS/HCC V28) Bipolar disorder, unspecified (CMS/HCC V24, CMS/HCC V28) Other nursing home (current) drug therapy HEPATIC FUNCTION PANEL Routine 04/08/2025 6:36 AM EDT Alcohol use, 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 (CMS/HCC V24, CMS/HCC V28) Bipolar disorder, unspecified (CMS/HCC V24, CMS/HCC V28) Other nursing home (current) drug therapy COMPREHENSIVE METABOLIC PANEL Routine 04/08/2025 6:36 AM EDT Alcohol use, 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 (CMS/HCC V24, CMS/HCC V28) Bipolar disorder, unspecified (CMS/HCC V24, CMS/HCC V28) 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 from Last 3 Months Results * (ABNORMAL) Complete blood count (05/26/2025 6:56 AM EDT) [facility] WBC 6.0 4.8 - 10.8 K/mcL LAB HEMETOLOGY METHOD 05/26/2025 7:43 AM EDT [facility] RBC 3.90 3.80 - 4.80 M/mcL LAB HEMETOLOGY METHOD 05/26/2025 7:43 AM EDT [facility] LAB Hemoglobin 12.5 11.5 - 16.0 g/dL LAB HEMETOLOGY METHOD 05/26/2025 7:43 AM [facility] LAB Hematocrit 38.1 35.0 - 47.0 % LAB HEMETOLOGY METHOD 05/26/2025 7[facility] MCV 98.7(H) 79.0 - 98.0 FL LAB HEMETOLOGY METHOD 05/26/2025 7:43 AM EDT [facility] MCH 32.4(H) 27.0 - 32.0 pcg LAB HEMETOLOGY METHOD 05/26/2025 7:43 AM [facility] LAB MCHC 32.8 32.0 - 37.0 g/dL LAB HEMETOLOGY METHOD 05/26/2025 7:43 AM EDT [facility] RDW 11.8 11.0 - 15.0 % LAB HEMETOLOGY METHOD 05/26/2025 7:43 AM [facility] Platelets 196 130 - 400 K/mcL LAB HEMETOLOGY METHOD 05/26/2025 7:43 AM [facility] LAB MPV 10.2 7.0 - 11.0 FL LAB HEMETOLOGY METHOD 05/26/2025 7:43 [facility] NRBC 0.0 <1.0 % LAB HEMETOLOGY METHOD 05/26/2025 7:43 AM T [facility] LAB NRBC Absolute 0.00 <0.10 K/mcL LAB HEMETOLOGY METHOD 05/26/2025 7:43 AM [facility] Blood Venous blood specimen / Unknown 05/26/2025 6:56 AM EDT 05/26/2025 7:17 AM EDT us Fitz Hernandez MD LAB BLOOD ORDERABLES Final Resul t [facility] LAB [address] [place] [address], * SST tube (04/08/2025 6:36 AM EDT) Extra Tube Hold for add-ons. 04/08/2025 1:01 PM EDT [facility] LAB Comment:Auto resulted. Blood Venous blood specimen / Unknown 04/08/2025 6:36 AM EDT 04/08/2025 7:05 AM EDT us Fitz Hernandez MD LAB BLOOD ORDERABLES Final Resul t Performing Organization Address City/[facility]/ZIP Co de Phone Number [facility] LAB [address] [place] [address], [place] [phone] * Lipid panel with reflex to direct LDL (04/08/2025 6:36 AM EDT) Cholesterol 168 0 - 200 mg/dL LAB CHEMISTRY METHOD 04/08/2025 7:46 AM [facility] Triglycerides 47 0 - 150 mg/dL LAB CHEMISTRY METHOD 04/08/2025 7:46 AM [facility] HDL 59 >=40 mg/dL LAB CHEMISTRY METHOD 04/08/2025 7:46 AM [facility] LDL Calculated 100 0 - 100 mg/dL LAB CHEMISTRY METHOD 04/08/2025 7:46 AM T [facility] VLDL Cholesterol Mustapha 9.4 mg/dL LAB CHEMISTRY METHOD 04/08/2025 7:46 AM [facility] Non HDL Chol. (LDL+VLDL) 109 <145 mg/dL LAB CHEMISTRY METHOD 04/08/2025 7:46 AM [facility] Chol/HDL Ratio 2.8 0.0 - 4.4 LAB CHEMISTRY METHOD 04/08/2025 7:46 AM [facility] LAB Blood Venous blood specimen / Unknown 04/08/2025 6:36 AM EDT 04/08/2025 7:05 AM EDT us Fitz Hernandez MD LAB BLOOD ORDERABLES Final Resul t Performing Organization Address City/[facility]/ZIP Co de Phone Number [facility] [address] [place] [address], [place] [phone] * Ammonia (04/08/2025 6:36 AM EDT) Pathologist [facility] Ammonia 16 11 - 35 mcmol/L LAB CHEMISTRY METHOD 04/08/2025 7:46 AM EDT [facility] Blood Venous blood specimen / Unknown 04/08/2025 6:36 AM EDT 04/08/2025 7:05 AM EDT us Fitz Hernandez MD LAB BLOOD ORDERABLES Final Resul t Performing Organization Address City/[facility]/ZIP Co de Phone Number [facility] [address] [place] [address], [place] [phone] * (ABNORMAL) Carbamazepine level, total (04/08/2025 6:36 AM EDT) [facility] Carbamazepine Level 6.7(L) 8.0 - 12.0 mcg/mL LAB CHEMISTRY METHOD 04/08/2025 7:46 AM EDT [facility] Blood Venous blood specimen / Unknown 04/08/2025 6:36 AM EDT 04/08/2025 7:05 AM EDT us Fitz Hernandez MD LAB BLOOD ORDERABLES Final Resul t Performing Organization Address City/[facility]/ZIP Co de Phone Number [facility] [address] [place] [address], [place] [phone] * (ABNORMAL) Hepatic function panel (04/08/2025 6:36 AM EDT) Pathologist [facility] Total Protein 5.7(L) 6.0 - 8.0 g/dL LAB CHEMISTRY METHOD 04/08/2025 7:46 AM EDT [facility] Albumin 2.8(L) 3.2 - 5.0 g/dL LAB CHEMISTRY METHOD 04/08/2025 7:46 AM EDT [facility] Total Bilirubin 0.5 0.0 - 1.4 mg/dL LAB CHEMISTRY METHOD 04/08/2025 7:46 AM EDT [facility] Bilirubin, Direct 0.2 0.0 - 0.3 mg/dL LAB CHEMISTRY METHOD 04/08/2025 7:46 AM EDT [facility] Bilirubin, Indirect 0.3 0.0 - 1.1 mg/dL LAB CHEMISTRY METHOD 04/08/2025 7:46 AM EDT [facility] ALT (SGPT) 20 10 - 60 unit/L LAB CHEMISTRY METHOD 04/08/2025 7:46 AM [facility] AST (SGOT) 17 10 - 42 unit/L LAB CHEMISTRY METHOD 04/08/2025 7:46 AM [facility] Alkaline Phosphatase 67 42 - 121 unit/L LAB CHEMISTRY METHOD 04/08/2025 7:46 AM [facility] Blood Venous blood specimen / Unknown 04/08/2025 6:36 AM EDT 04/08/2025 7:05 AM EDT us Fitz Hernandez MD LAB BLOOD ORDERABLES Final Resul t [facility] [address] [place] [address], * (ABNORMAL) Comprehensive metabolic panel (04/08/2025 6:36 AM EDT) Sodium 140 133 - 145 mmol/L LAB CHEMISTRY METHOD 04/08/2025 7:46 AM T [facility] Potassium 4.3 3.5 - 5.5 mmol/L LAB CHEMISTRY METHOD 04/08/2025 7:46 AM T [facility] Chloride 108 96 - 110 mmol/L LAB CHEMISTRY METHOD 04/08/2025 7:46 AM EDT [facility] CO2 27 21 - 32 mmol/L LAB CHEMISTRY METHOD 04/08/2025 7:46 AM [facility] Anion Gap 5 3 - 11 LAB CHEMISTRY METHOD 04/08/2025 7:46 AM [facility] Glucose 96 70 - 100 mg/dL LAB CHEMISTRY METHOD 04/08/2025 7:46 AM [facility] BUN 15 5 - 25 mg/dL LAB CHEMISTRY METHOD 04/08/2025 7:46 AM [facility] Creatinine 0.70 0.50 - 1.10 mg/dL LAB CHEMISTRY METHOD 04/08/2025 7:46 AM [facility] eGFR 95 >=60 mL/min/1. 73m2 LAB CHEMISTRY METHOD 04/08/2025 7:46 AM [facility] Comment:Calculation based on the Chronic Kidney Disease Epidemiology Collaboration (CKD-EPI) equation refit without adjustment for race. BUN/Creatinine Ratio 21.4 LAB CHEMISTRY METHOD 04/08/2025 7:46 AM [facility] Calcium 8.7 8.5 - 10.5 mg/dL LAB CHEMISTRY METHOD 04/08/2025 7:46 AM [facility] AST (SGOT) 17 10 - 42 unit/L LAB CHEMISTRY METHOD 04/08/2025 7:46 AM [facility] ALT (SGPT) 20 10 - 60 unit/L LAB CHEMISTRY METHOD 04/08/2025 7:46 AM [facility] Alkaline Phosphatase 67 42 - 121 unit/L LAB CHEMISTRY METHOD 04/08/2025 7:46 AM [facility] Total Protein 5.7(L) 6.0 - 8.0 g/dL LAB CHEMISTRY METHOD 04/08/2025 7:46 AM [facility] Albumin 2.8(L) 3.2 - 5.0 g/dL LAB CHEMISTRY METHOD 04/08/2025 7:46 AM [facility] Total Bilirubin 0.5 0.0 - 1.4 mg/dL LAB CHEMISTRY METHOD 04/08/2025 7:46 AM EDT [facility] ([facility]) [facility] Blood Venous blood specimen / Unknown 04/08/2025 6:36 AM EDT 04/08/2025 7:05 AM EDT us Fitz Hernandez MD LAB BLOOD ORDERABLES Final Resul t [facility] ([facility]) [facility] [address] [place] [address], [place] [phone] from Last 3 Months Insurance * Guarantor: Juan Diego Carey Account Type Relation to Patient Date of Phone Billing Address Personal/Family Self 1955 x[address] (Home) [address] [place] [address] MEDICARE Care Teams Chief Engineer Production Relationship Specialty Start Date End Date Fitz Hernandez MD [address] [place] [address] [address] [place], [place] PCP - General Internal Medicine 11/19/24
--- OUTSIDE RECORDS SUMMARY | 2025-06-17 14:35 | XMS_ITS | Encounter Summary ---
[facility] Address [address] [place] [address] Care Team Providers Care Freight Separator Name Role Phone Fitz Hernandez MD Primary Care Provider [phone] Encounter Details Date Type Department Care Team (Late st Contact Info) Description 05/26/2025 Lab Requisition [facility] - [facility] Lab [address] [place] [address] Fitz Hernandez MD [address] [place] [address] Dr [address] [place] Age-related osteoporosis without current pathological fracture Social History Tobacco Use Types Packs/Day Years Used Date Smoking Tobacco: Never Assessed Comments Unknown Sex and Gender Information Value Date Recorded Sex Assigned at Not on file Legal Sex Female 12:29 PM EST Gender Identity Not on file Sexual Orientation Not on file documented as of this encounter Plan of Treatment Not on file documented as of this encounter Procedures Procedure Name Priority Date/Time Associated Diagnosis Comments COMPLETE BLOOD COUNT Routine 05/26/2025 6:56 AM EDT Age-related osteoporosis without current pathological fracture documented in this encounter Results * (ABNORMAL) Complete blood count (05/26/2025 6:56 AM EDT) WBC 6.0 4.8 - 10.8 K/mcL LAB HEMETOLOGY METHOD 05/26/2025 7:43 AM EDT [facility] RBC 3.90 3.80 - 4.80 M/[facility] LAB HEMETOLOGY METHOD 05/26/2025 7:43 AM EDT [facility] Hemoglobin 12.5 11.5 - 16.0 g/dL LAB HEMETOLOGY METHOD 05/26/2025 7:43 AM EDT [facility] Hematocrit 38.1 35.0 - 47.0 % LAB HEMETOLOGY METHOD 05/26/2025 7:43 AM EDT [facility] MCV 98.7(H) 79.0 - 98.0 FL LAB HEMETOLOGY METHOD 05/26/2025 7:43 AM EDT [facility] MCH 32.4(H) 27.0 - 32.0 pcg LAB HEMETOLOGY METHOD 05/26/2025 7:43 AM EDT [facility] MCHC 32.8 32.0 - 37.0 g/dL LAB HEMETOLOGY METHOD 05/26/2025 7:43 AM EDT [facility] RDW 11.8 11.0 - 15.0 % LAB HEMETOLOGY METHOD 05/26/2025 7:43 AM [facility] Platelets 196 130 - 400 K/mcL LAB HEMETOLOGY METHOD 05/26/2025 7:43 AM EDT [facility] MPV 10.2 7.0 - 11.0 FL LAB HEMETOLOGY METHOD 05/26/2025 7:43 AM EDT [facility] NRBC 0.0 <1.0 % LAB HEMETOLOGY METHOD 05/26/2025 7:43 AM [facility] NRBC Absolute 0.00 <0.10 K/mcL LAB HEMETOLOGY METHOD 05/26/2025 7:43 AM T [facility] Blood Venous blood specimen / Unknown 05/26/2025 6:56 AM EDT 05/26/2025 7:17 AM EDT us Fitz Hernandez MD LAB BLOOD ORDERABLES Final Resul t [facility] [address] [place] [address], documented in this encounter Visit Diagnoses Diagnosis Age-related osteoporosis without current pathological fracture documented in this encounter Care Teams Freight Separator Relationship Specialty Start Date End Date Fitz Hernandez MD [address] [place] PCP - General Internal Medicine 11/19/24 documented as of this encounter
--- OUTSIDE RECORDS SUMMARY | 2025-06-17 14:35 | XMS_ITS | Encounter Summary ---
Author Organization [facility] Address [address] [place] [address] Care Team Providers Care Passenger Locomotive Engineer Name Role Phone Fitz Hernandez MD Primary Care Provider [phone] Encounter Details Date Type Department Care Team (Late st Contact Info) Description 12/15/2024 Lab Requisition [facility] - Main Lab [address] [place] [address] Fitz Hernandez MD [address] [place] [address] Dr [address] [place] Encounter for therapeutic drug level monitoring Social History Tobacco Use Types Packs/Day Years [...] Procedure Name Priority Date/Time Associated Diagnosis Comments COMPREHENSIVE METABOLIC PANEL Routine 12/15/2024 6:38 AM EST Encounter for therapeutic drug level monitoring documented in this encounter Results * (ABNORMAL) Comprehensive metabolic panel (12/15/2024 6:38 AM EST) Sodium 140 133 - 145 mmol/L LAB CHEMISTRY METHOD 12/15/2024 8:43 AM EST [facility] Potassium 4.2 3.5 - 5.5 mmol/L LAB CHEMISTRY METHOD 12/15/2024 8:43 AM EST [facility] Chloride 108 96 - 110 mmol/L LAB CHEMISTRY METHOD 12/15/2024 8:43 AM EST [facility] CO2 26 21 - 32 mmol/L LAB CHEMISTRY METHOD 12/15/2024 8:43 AM EST [facility] Anion Gap 6 3 - 11 LAB CHEMISTRY METHOD 12/15/2024 8:43 AM [facility] Glucose 137(H) 70 - 100 mg/dL LAB CHEMISTRY METHOD 12/15/2024 8:43 AM [facility] BUN 20 5 - 25 mg/dL LAB CHEMISTRY METHOD 12/15/2024 8:43 AM [facility] Creatinine 0.61 0.50 - 1.10 mg/dL LAB CHEMISTRY METHOD 12/15/2024 8:43 AM [facility] eGFR 98 >=60 mL/min/1. 73m2 LAB CHEMISTRY METHOD 12/15/2024 8:43 AM [facility] Comment:Calculation based on the Chronic Kidney Disease Epidemiology Collaboration (CKD-EPI) equation refit without adjustment for race. BUN/Creatinine Ratio 32.8 LAB CHEMISTRY METHOD 12/15/2024 8:43 AM [facility] Calcium 8.5 8.5 - 10.5 mg/dL LAB CHEMISTRY METHOD 12/15/2024 8:43 AM [facility] AST (SGOT) 20 10 - 42 unit/L LAB CHEMISTRY METHOD 12/15/2024 8:43 AM [facility] ALT (SGPT) 17 10 - 60 unit/L LAB CHEMISTRY METHOD 12/15/2024 8:43 AM [facility] Alkaline Phosphatase 78 42 - 121 unit/L LAB CHEMISTRY METHOD 12/15/2024 8:43 AM [facility] Total Protein 6.3 6.0 - 8.0 g/dL LAB CHEMISTRY METHOD 12/15/2024 8:43 AM [facility] Albumin 2.9(L) 3.2 - 5.0 g/dL LAB CHEMISTRY METHOD 12/15/2024 8:43 AM [facility] Total Bilirubin 0.4 0.0 - 1.4 mg/dL LAB CHEMISTRY METHOD 12/15/2024 8:43 AM [facility] Blood Venous blood specimen / Unknown 12/15/2024 6:38 AM EST 12/15/2024 8:06 AM EST us Fitz Hernandez MD LAB BLOOD ORDERABLES Final Resul t [facility] [address] [place] [address], documented in this encounter Visit Diagnoses Diagnosis Encounter for therapeutic drug level monitoring documented in this encounter Care Teams Passenger Locomotive Engineer Relationship Specialty Start Date End Date Fitz Hernandez MD [address] [place], [place] PCP - General Internal Medicine 11/19/24 documented as of this encounter
--- OUTSIDE RECORDS SUMMARY | 2025-06-17 14:35 | XMS_ITS | Encounter Summary ---
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 (CMS/HCC V24, CMS/HCC V28); Bipolar disorder, unspecified (CMS/HCC V24, CMS/HCC V28); 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 Social History Tobacco Use Types Packs/Day Years [...] Procedure Name Priority Date/Time Associated Diagnosis Comments SST - GOLD Routine 04/08/2025 6:36 AM EDT Alcohol use, 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 (CMS/HCC V24, CMS/HCC V28) Bipolar disorder, unspecified (CMS/HCC V24, CMS/HCC V28) 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 LIPID PANEL WITH REFLEX TO DIRECT LDL Routine 04/08/2025 6:36 AM EDT Alcohol use, 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 (CMS/HCC V24, CMS/HCC V28) Bipolar disorder, unspecified (CMS/HCC V24, CMS/HCC V28) Other snf (current) drug therapy AMMONIA Routine 04/08/2025 6:36 AM EDT Alcohol use, 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 (CMS/HCC V24, CMS/HCC V28) Bipolar disorder, unspecified (CMS/HCC V24, CMS/HCC V28) 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 CARBAMAZEPINE LEVEL, TOTAL Routine 04/08/2025 6:36 AM EDT Alcohol use, 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 (CMS/HCC V24, CMS/HCC V28) Bipolar disorder, unspecified (CMS/HCC V24, CMS/HCC V28) Other snf (current) drug therapy HEPATIC FUNCTION PANEL Routine 6:36 AM EDT Alcohol use, 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 04/08/2025 1:01 PM EDT [facility] ([facility]) [facility] LAB Comment:Auto resulted. Blood Venous blood specimen / Unknown 04/08/2025 6:36 AM EDT 04/08/2025 7:05 AM EDT us Fitz Hernandez MD LAB BLOOD ORDERABLES Final Resul t [facility] [address] [place] [address], * Ammonia (04/08/2025 6:36 AM EDT) Ammonia 16 11 - 35 mcmol/L LAB CHEMISTRY METHOD 04/08/2025 7:46 AM EDT [facility] Blood Venous blood specimen / Unknown 04/08/2025 6:36 AM EDT 04/08/2025 7:05 AM EDT us Ftiz Hernandez MD LAB BLOOD ORDERABLES Final Resul t Performing Organization Address [facility]/ZIP Co de Phone Number [facility] [address] [place] [address], [place] [phone] * (ABNORMAL) Carbamazepine level, total (04/08/2025 6:36 AM EDT) Pathologist [facility] Carbamazepine Level 6.7(L) 8.0 - 12.0 mcg/mL LAB CHEMISTRY METHOD 04/08/2025 7:46 AM EDT [facility] Blood Venous blood specimen / Unknown 04/08/2025 6:36 AM EDT 04/08/2025 7:05 AM EDT us Fitz Hernandez MD LAB BLOOD ORDERABLES Final Resul t Performing Organization Address [facility]/ZIP Co de Phone Number [facility] [address] [place] [address], [place] [phone] * Lipid panel with reflex to direct LDL (04/08/2025 6:36 AM EDT) Cholesterol 168 0 - 200 mg/dL LAB CHEMISTRY METHOD 04/08/2025 7:46 AM EDT [facility] Triglycerides 47 0 - 150 mg/dL LAB CHEMISTRY METHOD 04/08/2025 7:46 AM EDT [facility] HDL 59 >=40 mg/dL LAB CHEMISTRY METHOD 04/08/2025 7:46 AM EDT [facility] LDL Calculated 100 0 - 100 mg/dL LAB CHEMISTRY METHOD 04/08/2025 7:46 AM EDT [facility] VLDL Cholesterol Mustapha 9.4 mg/dL LAB CHEMISTRY METHOD 04/08/2025 7:46 AM EDT [facility] Non HDL Chol. (LDL+VLDL) 109 <145 mg/dL LAB CHEMISTRY METHOD 04/08/2025 7:46 AM EDT [facility] Chol/HDL Ratio 2.8 0.0 - 4.4 LAB CHEMISTRY METHOD 04/08/2025 7:46 AM T [facility] Blood Venous blood specimen / Unknown 04/08/2025 6:36 AM EDT 04/08/2025 7:05 AM EDT us Fitz Hernandez MD LAB BLOOD ORDERABLES Final Resul t [facility] [address] [place] [address], [place] [phone] * (ABNORMAL) Hepatic function panel (04/08/2025 6:36 AM EDT) Total Protein 5.7(L) 6.0 - 8.0 g/dL LAB CHEMISTRY METHOD 04/08/2025 7:46 AM [facility] Albumin 2.8(L) 3.2 - 5.0 g/dL LAB CHEMISTRY METHOD 04/08/2025 7:46 AM EDT [facility] Total Bilirubin 0.5 0.0 - 1.4 mg/dL LAB CHEMISTRY METHOD 04/08/2025 7:46 AM [facility] Bilirubin, Direct 0.2 0.0 - 0.3 mg/dL LAB CHEMISTRY METHOD 04/08/2025 7:46 AM [facility] Bilirubin, Indirect 0.3 0.0 - 1.1 mg/dL LAB CHEMISTRY METHOD 04/08/2025 7:46 AM EDT [facility] ALT (SGPT) 20 10 - 60 unit/L LAB CHEMISTRY METHOD 04/08/2025 7:46 AM T [facility] AST (SGOT) 17 10 - 42 unit/L LAB CHEMISTRY METHOD 04/08/2025 7:46 AM [facility] Alkaline Phosphatase 67 42 - 121 unit/L LAB CHEMISTRY METHOD 04/08/2025 7:46 AM T [facility] Blood Venous blood specimen / Unknown 04/08/2025 6:36 AM EDT 04/08/2025 7:05 AM EDT us Fitz Hernandez MD LAB BLOOD ORDERABLES Final Resul t [facility] [address] [place] [address], * (ABNORMAL) Comprehensive metabolic panel (04/08/2025 6:36 AM EDT) Sodium 140 133 - 145 mmol/L LAB CHEMISTRY METHOD 04/08/2025 7:46 AM [facility] Potassium 4.3 3.5 - 5.5 mmol/L LAB CHEMISTRY METHOD 04/08/2025 7:46 AM [facility] Chloride 108 96 - 110 mmol/L LAB CHEMISTRY METHOD 04/08/2025 7:46 AM [facility] CO2 27 21 - 32 mmol/L LAB CHEMISTRY METHOD 04/08/2025 7:46 AM [facility] Anion Gap 5 3 - 11 LAB CHEMISTRY METHOD 04/08/2025 7:46 AM [facility] Glucose 96 70 - 100 mg/dL LAB CHEMISTRY METHOD 04/08/2025 7:46 AM [facility] BUN 15 5 - 25 mg/dL LAB CHEMISTRY METHOD 04/08/2025 7:46 AM [facility] Creatinine 0.70 0.50 - 1.10 mg/dL LAB CHEMISTRY METHOD 04/08/2025 7:46 AM [facility] eGFR 95 >=60 mL/min/1. 73m2 LAB CHEMISTRY METHOD 04/08/2025 7:46 AM [facility] Comment:Calculation based on the Chronic Kidney Disease Epidemiology Collaboration (CKD-EPI) equation refit without adjustment for race. BUN/Creatinine Ratio 21.4 LAB CHEMISTRY METHOD 04/08/2025 7:46 AM [facility] Calcium 8.7 8.5 - 10.5 mg/dL LAB CHEMISTRY METHOD 04/08/2025 7:46 AM [facility] AST (SGOT) 17 10 - 42 unit/L LAB CHEMISTRY METHOD 04/08/2025 7:46 AM [facility] ALT (SGPT) 20 10 - 60 unit/L LAB CHEMISTRY METHOD 04/08/2025 7:46 AM [facility] Alkaline Phosphatase 67 42 - 121 unit/L LAB CHEMISTRY METHOD 04/08/2025 7:46 AM [facility] Total Protein 5.7(L) 6.0 - 8.0 g/dL LAB CHEMISTRY METHOD 04/08/2025 7:46 AM [facility] Albumin 2.8(L) 3.2 - 5.0 g/dL LAB CHEMISTRY METHOD 04/08/2025 7:46 AM [facility] Total Bilirubin 0.5 0.0 - 1.4 mg/dL LAB CHEMISTRY METHOD 04/08/2025 7:46 AM [facility] Blood Venous blood specimen / Unknown 04/08/2025 6:36 AM EDT 04/08/2025 7:05 AM EDT us Fitz Hernandez MD LAB BLOOD ORDERABLES Final Resul t [facility] [address] [place] [address], documented in this encounter Visit Diagnoses Diagnosis Alcohol use, 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 (CMS/[facility] V24, [facility] V28) Bipolar disorder, unspecified (CMS/[facility] V24, [facility] V28) Bipolar disorder, unspecified 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
--- OUTSIDE RECORDS SUMMARY | 2025-06-17 14:35 | XMS_ITS | Encounter Summary ---
Author Organization [facility] Address [address] [place] [address] Care Team Providers Care Coat Maker Name Role Phone Fitz Hernandez MD Primary Care Provider [phone] Encounter Details Date Type Department Care Team (Late st Contact Info) Description 09/30/2024 Lab Requisition [facility] - Main Lab [address] [facility] [place] [address] Fitz Hernandez MD [address] [place] [address] Dr [address] [place] Generalized idiopathic epilepsy and epileptic syndromes, not intractable, with status epilepticus (CMS/HCC V24, CMS/HCC V28); Bipolar disorder, unspecified (CMS/HCC V24, CMS/HCC V28) Social History Tobacco Use Types Packs/Day Years [...] Procedure Name Priority Date/Time Associated Diagnosis Comments RED - PLAIN Routine 09/30/2024 6:59 AM EST Generalized idiopathic epilepsy and epileptic syndromes, not intractable, with status epilepticus (CMS/HCC) Bipolar disorder, unspecified (CMS/HCC) AMMONIA Routine 09/30/2024 6:59 AM EST Generalized idiopathic epilepsy and epileptic syndromes, not intractable, with status epilepticus (CMS/HCC) Bipolar disorder, unspecified (CMS/HCC) CARBAMAZEPINE LEVEL, TOTAL Routine 09/30/2024 6:59 AM EST Generalized idiopathic epilepsy and epileptic syndromes, not intractable, with status epilepticus (CMS/HCC) Bipolar disorder, unspecified (CMS/HCC) COMPREHENSIVE METABOLIC PANEL Routine 09/30/2024 6:59 AM EST Generalized idiopathic epilepsy and epileptic syndromes, not intractable, with status epilepticus (CMS/HCC) Bipolar disorder, unspecified (CMS/HCC) documented in this encounter Results * Red tube (09/30/2024 6:59 AM EST) Extra Tube Hold for add-ons. 09/30/2024 9:01 AM EST [facility] Comment:Auto resulted. Blood Venous blood specimen / Unknown 09/30/2024 6:59 AM EST 09/30/2024 7:36 AM EST us Fitz Hernandez MD LAB BLOOD ORDERABLES Final Resul t Performing Organization Address [facility]/ZIP Co de Phone Number [facility] [address] [place] [address], * Carbamazepine level, total (09/30/2024 6:59 AM EST) Pathologist [facility] Carbamazepine Level 8.4 8.0 - 12.0 mcg/mL LAB CHEMISTRY METHOD 09/30/2024 8:08 AM EST [facility] Blood Venous blood specimen / Unknown 09/30/2024 6:59 AM EST 09/30/2024 7:32 AM EST us Fitz Hernandez MD LAB BLOOD ORDERABLES Final Resul t [facility] [address] [place] [address], [place] [phone] * (ABNORMAL) Ammonia (09/30/2024 6:59 AM EST) Ammonia <10(L) 11 - 35 mcmol/L LAB CHEMISTRY METHOD 09/30/2024 8:24 AM EST [facility] Blood Venous blood specimen / Unknown 09/30/2024 6:59 AM EST 09/30/2024 7:32 AM EST us Fitz Hernandez MD LAB BLOOD ORDERABLES Final Resul t [facility] [address] [place] [address], [place] [phone] * Comprehensive metabolic panel (09/30/2024 6:59 AM EST) Sodium 144 133 - 145 mmol/L LAB CHEMISTRY METHOD 09/30/2024 8:24 AM [facility] Potassium 4.1 3.5 - 5.5 mmol/L LAB CHEMISTRY METHOD 09/30/2024 8:24 AM [facility] Chloride 110 96 - 110 mmol/L LAB CHEMISTRY METHOD 09/30/2024 8:24 AM [facility] CO2 30 21 - 32 mmol/L LAB CHEMISTRY METHOD 09/30/2024 8:24 AM [facility] Anion Gap 4 3 - 11 LAB CHEMISTRY METHOD 09/30/2024 8:24 AM [facility] Glucose 94 70 - 100 mg/dL LAB CHEMISTRY METHOD 09/30/2024 8:24 AM [facility] BUN 20 5 - 25 mg/dL LAB CHEMISTRY METHOD 09/30/2024 8:24 AM [facility] Creatinine 0.74 0.50 - 1.10 mg/dL LAB CHEMISTRY METHOD 09/30/2024 8:24 AM [facility] eGFR 89 >=60 mL/min/1. 73m2 LAB CHEMISTRY METHOD 09/30/2024 8:24 AM [facility] Comment:Calculation based on the Chronic Kidney Disease Epidemiology Collaboration (CKD-EPI) equation refit without adjustment for race. BUN/Creatinine Ratio 27.0 LAB CHEMISTRY METHOD 09/30/2024 8:24 AM [facility] Calcium 8.9 8.5 - 10.5 mg/dL LAB CHEMISTRY METHOD 09/30/2024 8:24 AM [facility] AST (SGOT) 20 10 - 42 unit/L LAB CHEMISTRY METHOD 09/30/2024 8:24 AM [facility] ALT (SGPT) 22 10 - 60 unit/L LAB CHEMISTRY METHOD 09/30/2024 8:24 AM [facility] Alkaline Phosphatase 66 42 - 121 unit/L LAB CHEMISTRY METHOD 09/30/2024 8:24 AM [facility] Total Protein 6.4 6.0 - 8.0 g/dL LAB CHEMISTRY METHOD 09/30/2024 8:24 AM [facility] Albumin 3.3 3.2 - 5.0 g/dL LAB CHEMISTRY METHOD 09/30/2024 8:24 AM [facility] Total Bilirubin 0.6 0.0 - 1.4 mg/dL LAB CHEMISTRY METHOD 09/30/2024 8:24 AM [facility] Blood Venous blood specimen / Unknown 09/30/2024 6:59 AM EST 09/30/2024 7:32 AM EST Ftiz Hernandez MD LAB BLOOD ORDERABLES Final Resul t [facility] [address] [place] [address], documented in this encounter Visit Diagnoses Diagnosis Generalized idiopathic epilepsy and epileptic syndromes, not intractable, with status epilepticus (CMS/HCC V24, CMS/HCC V28) Bipolar disorder, unspecified (CMS/HCC V24, CMS/HCC V28) Bipolar disorder, unspecified documented in this encounter Care Teams Coat Maker Relationship Specialty Start Date End Date Fitz Hernandez MD [address] [place] [address] [place] [address] [place] PCP - General Internal Medicine 11/19/24 documented as of this encounter
--- OUTSIDE RECORDS SUMMARY | 2025-06-17 14:35 | XMS_ITS | Encounter Summary ---
[facility] Address [address] [place] [address] Care Team Providers Care Master Esthetician Name Role Phone Fitz Hernandez MD Primary Care Provider [phone] Encounter Details Date Type Department Care Team (Late st Contact Info) Description 11/19/[address] 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 documented in this encounter Results * (ABNORMAL) Complete blood count (11/19/2024 6:55 AM EST) WBC 5.6 4.8 - 10.8 K/mcL LAB HEMETOLOGY METHOD 11/19/2024 8:09 AM [facility] RBC 3.60(L) 3.80 - 4.80 M/mcL LAB HEMETOLOGY METHOD 11/19/2024 8:09 AM [facility] Hemoglobin 11.6 11.5 - 16.0 g/dL LAB HEMETOLOGY METHOD 11/19/2024 8:09 AM [facility] Hematocrit 35.7 35.0 - 47.0 % LAB HEMETOLOGY METHOD 11/19/2024 8:09 AM [facility] MCV 100.3(H) 79.0 - 98.0 FL LAB HEMETOLOGY METHOD 11/19/2024 8:09 AM [facility] MCH 32.6(H) 27.0 - 32.0 pcg LAB HEMETOLOGY METHOD 11/19/2024 8:09 AM [facility] MCHC 32.5 32.0 - 37.0 g/dL LAB HEMETOLOGY METHOD 11/19/2024 8:09 AM [facility] RDW 11.9 11.0 - 15.0 % LAB HEMETOLOGY METHOD 11/19/2024 8:09 AM [facility] Platelets 220 130 - 400 K/mcL LAB HEMETOLOGY METHOD 11/19/2024 8:09 AM [facility] MPV 10.4 7.0 - 11.0 FL LAB HEMETOLOGY METHOD 11/19/2024 8:09 AM [facility] NRBC 0.0 <1.0 % LAB HEMETOLOGY METHOD 11/19/2024 8:09 AM [facility] NRBC Absolute 0.00 <0.10 K/mcL LAB HEMETOLOGY METHOD 11/19/2024 8:09 AM [facility] Blood Venous blood specimen / Unknown 11/19/2024 6:55 AM EST 11/19/2024 7:48 AM EST us Fitz Hernandez MD LAB BLOOD ORDERABLES Final Resul t [facility] [address] [place] [address], documented in this encounter Visit Diagnoses Diagnosis 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
== END 2025-06-17 11:58 | disposition home or self-care (01) ==
LOC: HO.MAMMO 11:57
PROVIDERS: PCP Hospitalist; Visit Provider Hospitalist
DX: M81.0 Age-related osteoporosis without current pathological fracture (principal); R92.30 Dense breasts, unspecified
CPT/HCPCS: 76641

== ENCOUNTER → 2025-06-17 12:00 | Outpatient (BNV) | payer MEDICARE, MEDICAID, SELFPAY | PROVIDERS: PCP Hospitalist; Visit Provider Internal Medicine | DX: R92.8 Other abnormal and inconclusive findings on diagnostic imaging of breast (principal) | CPT/HCPCS: 76641 ==

== ENCOUNTER 2025-08-31 14:06 | Outpatient (REF) | payer MEDICARE, MEDICAID, SELFPAY ==
--- NOTE | ~2025-08-31 | MM_ITS ---
EXAMINATION: DXA BONE DENSITY AXIAL HISTORY: OSTEOPOROSIS TECHNIQUE: SimulScribe Dual energy absorptiometry (DEXA) of the lumbar spine, total left hip, and femoral neck was performed. COMPARISON: Comparison is made with the prior examination most recent dated May 2023. FINDINGS: The bone mineral density of the lumbar spine is L2-L4 (L3) 0.927, g/cm2, corresponding to a T-score of -2.3. and a Z-score of -0.9. This is indicative of osteopenia. This represents a BMD change of 4% compared to the prior exam. This is not statistically significant. The bone mineral density of the left total hip is 1.048 g/cm2, corresponding to a T-score of -0.3, and a Z-score of 1.5. This is indicative of normal bone mineral density. This represents a BMD change of 19.4% compared to the prior exam. This is statistically significant. The bone mineral density of the left femoral neck is 1.318 g/cm2, corresponding to a T-score of 2.0, and a Z-score of 3.5. This is indicative of normal bone mineral density. This represents a BMD change of 41.9% compared to the prior exam. This is statistically significant. FRACTURE RISK: The FRAX index suggests a ten year probability of major osteoporotic fracture of 4.7%, and of hip fracture 0%. MM/XR DEXA axial skeleton IMPRESSION: Based on bone mineral density, and according to World Health Organization (WHO) criteria, the diagnosis is consistent with osteopenia based on lowest T score of -2.3 in the spine. Bone mineral density is improved compared to previous exam. Treatment Recommendations: NOF guidelines recommend consideration for treatment in postmenopausal women and men age 50 and older presenting with the following: -A hip or vertebral (clinical or morphometric) fracture. -T-score less than or equal to -2.5 at the femoral neck or spine after appropriate evaluation to exclude secondary causes. -Low bone mass at the hip or spine and a 10-year fracture probability by FRAX of greater than or equal to 3% for hip fracture or greater than or equal to 20% for major osteoporotic fracture based on the [place] adapted WHO algorithm. Other Recommendations: All treatment decisions require clinical judgment and consideration of individual patient factors, including patient preferences, comorbidities, previous drug use, risk factors not captured in the FRAX model (e.g. frailty, falls, vitamin D deficiency, increased bone turnover, interval significant decline in bone density) and possible under or overestimation of fracture risk by FRAX. Additional medical evaluation for secondary cause of low bone mineral density may be appropriate. FUTURE SCAN RECOMMENDATION: People with diagnosed cases of osteoporosis or at high risk for fracture should have regular bone mineral density tests. For patients eligible for Medicare, routine testing is allowed once every 2 years. The testing frequency can be increased to one year for patients who have rapidly progressing disease, those who are receiving or discontinuing medical therapy to restore bone mass, or have additional risk factors. Statistically, 68% of repeat scans fall within 1 SD (+/- 0.010 g/cm2 for AP spine L1-L4) and 1 SD (+/- 0.012 g/cm2 for femur total) FRAX is a trademark of the [employer], a World Health Organization (WHO) Collaborating Center. Electronically signed by: Opal Weller MD 09/01/2025 08:32 AM [facility]
--- OUTSIDE RECORDS SUMMARY | 2025-09-01 03:48 | XMS_ITS | Encounter Summary ---
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 (CMS/HCC V24, CMS/HCC V28); Bipolar disorder, unspecified (CMS/HCC V24, CMS/HCC V28); 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 Social History Tobacco Use [...] disorder, unspecified (CMS/HCC V24, CMS/HCC V28) 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 LIPID PANEL WITH REFLEX TO DIRECT LDL Routine 04/08/2025 6:36 AM EDT Alcohol use, 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 (CMS/HCC V24, CMS/HCC V28) Bipolar disorder, unspecified (CMS/HCC V24, CMS/HCC V28) Other longterm (current) drug therapy AMMONIA Routine 04/08/2025 6:36 AM EDT Alcohol use, 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 (CMS/HCC V24, CMS/HCC V28) Bipolar disorder, unspecified (CMS/HCC V24, CMS/HCC V28) 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 CARBAMAZEPINE LEVEL, TOTAL Routine 04/08/2025 6:36 AM EDT Alcohol use, 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 (CMS/HCC V24, CMS/HCC V28) Bipolar disorder, unspecified (CMS/HCC V24, CMS/HCC V28) Other longterm (current) drug therapy HEPATIC FUNCTION PANEL Routine 6:36 AM EDT Alcohol use, 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 04/08/2025 1:01 PM EDT [facility] Comment:Auto resulted. Blood Venous blood specimen / Unknown 04/08/2025 6:36 AM EDT 04/08/2025 7:05 AM EDT us Fitz Hernandez MD LAB BLOOD ORDERABLES Final Resul t [facility] [address] [place] [address], * Ammonia (04/08/2025 6:36 AM EDT) Ammonia 16 11 - 35 mcmol/L LAB CHEMISTRY METHOD 04/08/2025 7:46 AM EDT [facility] Blood Venous blood specimen / Unknown 04/08/2025 6:36 AM EDT 04/08/2025 7:05 AM EDT us Fitz Hernandez MD LAB BLOOD ORDERABLES Final Resul t Performing Organization Address [facility]/ZIP Co de Phone Number [facility] [address] [place] [address], [place] [phone] * (ABNORMAL) Carbamazepine level, total (04/08/2025 6:36 AM EDT) Pathologist [facility] Carbamazepine Level 6.7(L) 8.0 - 12.0 mcg/mL LAB CHEMISTRY METHOD 04/08/2025 7:46 AM EDT [facility] Blood Venous blood specimen / Unknown 04/08/2025 6:36 AM EDT 04/08/2025 7:05 AM EDT us Fitz Hernandez MD LAB BLOOD ORDERABLES Final Resul t Performing Organization Address [facility]/ZIP Co de Phone Number [facility] [address] [place] [address], [place] [phone] * Lipid panel with reflex to direct LDL (04/08/2025 6:36 AM EDT) Cholesterol 168 0 - 200 mg/dL LAB CHEMISTRY METHOD 04/08/2025 7:46 AM EDT [facility] Triglycerides 47 0 - 150 mg/dL LAB CHEMISTRY METHOD 04/08/2025 7:46 AM EDT [facility] HDL 59 >=40 mg/dL LAB CHEMISTRY METHOD 04/08/2025 7:46 AM EDT [facility] LDL Calculated 100 0 - 100 mg/dL LAB CHEMISTRY METHOD 04/08/2025 7:46 AM EDT [facility] VLDL Cholesterol Mustapha 9.4 mg/dL LAB CHEMISTRY METHOD 04/08/2025 7:46 AM EDT [facility] Non HDL Chol. (LDL+VLDL) 109 <145 mg/dL LAB CHEMISTRY METHOD 04/08/2025 7:46 AM EDT [facility] Chol/HDL Ratio 2.8 0.0 - 4.4 LAB CHEMISTRY METHOD 04/08/2025 7:46 AM T [facility] Blood Venous blood specimen / Unknown 04/08/2025 6:36 AM EDT 04/08/2025 7:05 AM EDT us Fitz Hernandez MD LAB BLOOD ORDERABLES Final Resul t [facility] [address] [place] [address], [place] [phone] * (ABNORMAL) Hepatic function panel (04/08/2025 6:36 AM EDT) Total Protein 5.7(L) 6.0 - 8.0 g/dL LAB CHEMISTRY METHOD 04/08/2025 7:46 AM [facility] Albumin 2.8(L) 3.2 - 5.0 g/dL LAB CHEMISTRY METHOD 04/08/2025 7:46 AM EDT [facility] Total Bilirubin 0.5 0.0 - 1.4 mg/dL LAB CHEMISTRY METHOD 04/08/2025 7:46 AM [facility] Bilirubin, Direct 0.2 0.0 - 0.3 mg/dL LAB CHEMISTRY METHOD 04/08/2025 7:46 AM [facility] Bilirubin, Indirect 0.3 0.0 - 1.1 mg/dL LAB CHEMISTRY METHOD 04/08/2025 7:46 AM EDT [facility] ALT (SGPT) 20 10 - 60 unit/L LAB CHEMISTRY METHOD 04/08/2025 7:46 AM T [facility] AST (SGOT) 17 10 - 42 unit/L LAB CHEMISTRY METHOD 04/08/2025 7:46 AM [facility] Alkaline Phosphatase 67 42 - 121 unit/L LAB CHEMISTRY METHOD 04/08/2025 7:46 AM T [facility] Blood Venous blood specimen / Unknown 04/08/2025 6:36 AM EDT 04/08/2025 7:05 AM EDT us Fitz Hernandez MD LAB BLOOD ORDERABLES Final Resul t [facility] [address] [place] [address], * (ABNORMAL) Comprehensive metabolic panel (04/08/2025 6:36 AM EDT) Sodium 140 133 - 145 mmol/L LAB CHEMISTRY METHOD 04/08/2025 7:46 AM [facility] Potassium 4.3 3.5 - 5.5 mmol/L LAB CHEMISTRY METHOD 04/08/2025 7:46 AM [facility] Chloride 108 96 - 110 mmol/L LAB CHEMISTRY METHOD 04/08/2025 7:46 AM [facility] CO2 27 21 - 32 mmol/L LAB CHEMISTRY METHOD 04/08/2025 7:46 AM [facility] Anion Gap 5 3 - 11 LAB CHEMISTRY METHOD 04/08/2025 7:46 AM [facility] Glucose 96 70 - 100 mg/dL LAB CHEMISTRY METHOD 04/08/2025 7:46 AM [facility] BUN 15 5 - 25 mg/dL LAB CHEMISTRY METHOD 04/08/2025 7:46 AM [facility] Creatinine 0.70 0.50 - 1.10 mg/dL LAB CHEMISTRY METHOD 04/08/2025 7:46 AM [facility] eGFR 95 >=60 mL/min/1. 73m2 LAB CHEMISTRY METHOD 04/08/2025 7:46 AM [facility] Comment:Calculation based on the Chronic Kidney Disease Epidemiology Collaboration (CKD-EPI) equation refit without adjustment for race. BUN/Creatinine Ratio 21.4 LAB CHEMISTRY METHOD 04/08/2025 7:46 AM [facility] Calcium 8.7 8.5 - 10.5 mg/dL LAB CHEMISTRY METHOD 04/08/2025 7:46 AM [facility] AST (SGOT) 17 10 - 42 unit/L LAB CHEMISTRY METHOD 04/08/2025 7:46 AM [facility] ALT (SGPT) 20 10 - 60 unit/L LAB CHEMISTRY METHOD 04/08/2025 7:46 AM [facility] Alkaline Phosphatase 67 42 - 121 unit/L LAB CHEMISTRY METHOD 04/08/2025 7:46 AM [facility] Total Protein 5.7(L) 6.0 - 8.0 g/dL LAB CHEMISTRY METHOD 04/08/2025 7:46 AM [facility] Albumin 2.8(L) 3.2 - 5.0 g/dL LAB CHEMISTRY METHOD 04/08/2025 7:46 AM [facility] Total Bilirubin 0.5 0.0 - 1.4 mg/dL LAB CHEMISTRY METHOD 04/08/2025 7:46 AM [facility] Blood Venous blood specimen / Unknown 04/08/2025 6:36 AM EDT 04/08/2025 7:05 AM EDT us Fitz Hernandez MD LAB BLOOD ORDERABLES Final Resul t [facility] [address] [place] [address], documented in this encounter Visit Diagnoses Diagnosis Alcohol use, 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
--- OUTSIDE RECORDS SUMMARY | 2025-09-01 03:49 | XMS_ITS | Encounter Summary ---
Author Organization [facility] Address [address] [place] [address] Care Team Providers Care Restaurant District Manager Name Role Phone iFtz Hernandez MD Primary Care Provider [phone] Encounter Details Date Type Department Care Team (Late st Contact Info) Description 09/30/2024 Lab Requisition [facility] - Main Lab 299 [facility] [place] [address] Fitz Hernandez MD [address] [place] [address] Dr [address] [place] Generalized idiopathic epilepsy and epileptic syndromes, not [...] Hold for add-ons. 09/30/2024 9:01 AM EST [facility] Comment:Auto resulted. Blood Venous blood specimen / Unknown 09/30/2024 6:59 AM EST 09/30/2024 7:36 AM EST us Fitz Hernandez MD LAB BLOOD ORDERABLES Final Resul t Performing Organization Address [facility]/ZIP Co de Phone Number [facility] [address] [place] [address], * Carbamazepine level, total (09/30/2024 6:59 AM EST) Pathologist [facility] Carbamazepine Level 8.4 8.0 - 12.0 mcg/mL LAB CHEMISTRY METHOD 09/30/2024 8:08 AM EST [facility] Blood Venous blood specimen / Unknown 09/30/2024 6:59 AM EST 09/30/2024 7:32 AM EST us Fitz Hernandez MD LAB BLOOD ORDERABLES Final Resul t [facility] [address] [place] [address], [place] [phone] * (ABNORMAL) Ammonia (09/30/2024 6:59 AM EST) Ammonia <10(L) 11 - 35 mcmol/L LAB CHEMISTRY METHOD 09/30/2024 8:24 AM EST [facility] Blood Venous blood specimen / Unknown 09/30/2024 6:59 AM EST 09/30/2024 7:32 AM EST us Fitz Hernandez MD LAB BLOOD ORDERABLES Final Resul t [facility] [address] [place] [address], [place] [phone] * Comprehensive metabolic panel (09/30/2024 6:59 AM EST) Sodium 144 133 - 145 mmol/L LAB CHEMISTRY METHOD 09/30/2024 8:[address] [facility] Potassium 4.1 3.5 - 5.5 mmol/L LAB CHEMISTRY METHOD 09/30/2024 8:[address] [facility] Chloride 110 96 - 110 mmol/L LAB CHEMISTRY METHOD 09/30/2024 8:[address] [facility] CO2 30 21 - 32 mmol/L LAB CHEMISTRY METHOD 09/30/2024 8:[address] [facility] Anion Gap 4 3 - 11 LAB CHEMISTRY METHOD 09/30/2024 8:[address] [facility] Glucose 94 70 - 100 mg/dL LAB CHEMISTRY METHOD 09/30/2024 8:[address] [facility] BUN 20 5 - 25 mg/dL LAB CHEMISTRY METHOD 09/30/2024 8:[address] [facility] Creatinine 0.74 0.50 - 1.10 mg/dL LAB CHEMISTRY METHOD 09/30/2024 8:[address] [facility] eGFR 89 >=60 mL/min/1. 73m2 LAB CHEMISTRY METHOD 09/30/2024 8:[address] [facility] Comment:Calculation based on the Chronic Kidney Disease Epidemiology Collaboration (CKD-EPI) equation refit without adjustment for race. BUN/Creatinine Ratio 27.0 LAB CHEMISTRY METHOD 09/30/2024 8:[address] [facility] Calcium 8.9 8.5 - 10.5 mg/dL LAB CHEMISTRY METHOD 09/30/2024 8:[address] [facility] AST (SGOT) 20 10 - 42 unit/L LAB CHEMISTRY METHOD 09/30/2024 8:[address] [facility] ALT (SGPT) 22 10 - 60 unit/L LAB CHEMISTRY METHOD 09/30/2024 8:[address] [facility] Alkaline Phosphatase 66 42 - 121 unit/L LAB CHEMISTRY METHOD 09/30/2024 8:[address] [facility] Total Protein 6.4 6.0 - 8.0 g/dL LAB CHEMISTRY METHOD 09/30/2024 8:[address] [facility] Albumin 3.3 3.2 - 5.0 g/dL LAB CHEMISTRY METHOD 09/30/2024 8:[address] [facility] Total Bilirubin 0.6 0.0 - 1.4 mg/dL LAB CHEMISTRY METHOD 09/30/2024 8:[address] [facility] Blood Venous blood specimen / Unknown 09/30/2024 6:59 AM EST 09/30/2024 7:32 AM EST Fitz Hernandez MD LAB BLOOD ORDERABLES Final Resul t [facility] [address] [place] [address], documented in this encounter Visit Diagnoses Diagnosis Generalized idiopathic epilepsy and epileptic syndromes, not intractable, with status epilepticus (CMS/HCC V24, CMS/HCC V28) Bipolar disorder, unspecified (CMS/HCC V24, CMS/HCC V28) Bipolar disorder, unspecified documented in this encounter Care Teams Restaurant District Manager Relationship Specialty Start Date End Date Fitz Hernandez MD [address] [place] [address] [place] [address] ID PCP - General Internal Medicine 11/19/24 documented as of this encounter
--- OUTSIDE RECORDS SUMMARY | 2025-09-01 03:49 | XMS_ITS | Clinical Summary ---
Author Organization 299 [facility] Address [address] [place] [address] Phone Care Team Providers Care Hide Cleaner Name Role Phone Fitz Hernandez MD Primary Care Provider [phone] Encounters Date Type Department Care Team Description 06/24/2025 Lab Requisition [facility] - Main Lab 299 [facility] [place] [address] Fitz Hernandez MD Age-related osteoporosis without current pathological fracture; Thyrotoxicosis, unspecified without thyrotoxic crisis or storm from Last 3 Months Social History Tobacco Use Types Packs/Day Years Used Date Smoking Tobacco: Never Assessed Comments Unknown Sex and Gender Information Value Date Recorded Sex Assigned at Not on file Legal Sex Female 12:29 PM EST Gender Identity Not on file Sexual Orientation Not on file Plan of Treatment Health Maintenance Due Date Last Done Comments Breast Cancer Screening 1955 Colorectal Cancer Screening: Colonoscopy 1955 DTaP,Tdap,and Td Vaccines (1 - Tdap) 1976 Pneumococcal Vaccine: 50+ Ye ars (1 of 1 - PCV) 2007 Zoster Vaccines (1 of 2) 2007 Hepatitis C Screening 09/12/2022 Medicare Annual Wellness Visit 09/12/2022 Osteoporosis Screening (Bone Density Screening) 09/12/2022 Social Influencers of Health Screening 09/12/2022 Falls Risk Assessment 2022 Depression Screening 10/15/2024 COVID-19 Vaccine (1 - 2024-2 6 season) 2025 Influenza Vaccine (#1) 2025 Cholesterol Screening (Lipid [...] Procedure Name Priority Date/Time Associated Diagnosis Comments THYROID STIMULATING HORMONE Routine 06/24/2025 6:42 AM EDT Age-related osteoporosis without current pathological fracture Thyrotoxicosis, unspecified without thyrotoxic crisis or storm COMPREHENSIVE METABOLIC PANEL Routine 06/24/2025 6:42 AM EDT Age-related osteoporosis without current pathological fracture Thyrotoxicosis, unspecified without thyrotoxic crisis or storm LIPID PANEL WITH REFLEX TO DIRECT LDL Routine 04/08/2025 6:36 AM EDT Alcohol use, 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 (CMS/HCC V24, CMS/HCC V28) Bipolar disorder, unspecified (CMS/HCC V24, CMS/HCC V28) Other retirement (current) drug therapy from Last 3 Months or Most Recently Relevant to Health Maintenance Results * Thyroid stimulating hormone (06/24/2025 6:42 AM EDT) TSH 1.47 0.40 - 4.00 mcIU/mL LAB CHEMISTRY METHOD 06/24/2025 11:27 AM EDT [facility] Blood Venous blood specimen / Unknown 06/24/2025 6:42 AM EDT 06/24/2025 7:36 AM EDT us Fitz Hernandze MD LAB BLOOD ORDERABLES Final Resul t [facility] [address] [place] [address], * Comprehensive metabolic panel (06/24/2025 6:42 AM EDT) Sodium 140 133 - 145 mmol/L LAB CHEMISTRY METHOD 06/24/2025 9:14 AM [facility] Potassium 4.0 3.5 - 5.5 mmol/L LAB CHEMISTRY METHOD 06/24/2025 9:14 AM [facility] Chloride 106 96 - 110 mmol/L LAB CHEMISTRY METHOD 06/24/2025 9:14 AM [facility] CO2 30 21 - 32 mmol/L LAB CHEMISTRY METHOD 06/24/2025 9:14 AM [facility] Anion Gap 4 3 - 11 LAB CHEMISTRY METHOD 06/24/2025 9:14 AM [facility] Glucose 80 70 - 100 mg/dL LAB CHEMISTRY METHOD 06/24/2025 9:14 AM [facility] BUN 15 5 - 25 mg/dL LAB CHEMISTRY METHOD 06/24/2025 9:14 AM [facility] Creatinine 0.70 0.50 - 1.10 mg/dL LAB CHEMISTRY METHOD 06/24/2025 9:14 AM [facility] eGFR 95 >=60 mL/min/1. 73m2 LAB CHEMISTRY METHOD 06/24/2025 9:14 AM [facility] Comment:Calculation based on the Chronic Kidney Disease Epidemiology Collaboration (CKD-EPI) equation refit without adjustment for race. BUN/Creatinine Ratio 21.4 LAB CHEMISTRY METHOD 06/24/2025 9:14 AM [facility] Calcium 9.2 8.5 - 10.5 mg/dL LAB CHEMISTRY METHOD 06/24/2025 9:14 AM [facility] AST (SGOT) 21 10 - 42 unit/L LAB CHEMISTRY METHOD 06/24/2025 9:14 AM [facility] ALT (SGPT) 25 10 - 60 unit/L LAB CHEMISTRY METHOD 06/24/2025 9:14 AM [facility] Alkaline Phosphatase 101 42 - 121 unit/L LAB CHEMISTRY METHOD 06/24/2025 9:14 AM [facility] Total Protein 7.1 6.0 - 8.0 g/dL LAB CHEMISTRY METHOD 06/24/2025 9:14 AM [facility] Albumin 3.7 3.2 - 5.0 g/dL LAB CHEMISTRY METHOD 06/24/2025 9:14 AM [facility] Total Bilirubin 0.6 0.0 - 1.4 mg/dL LAB CHEMISTRY METHOD 06/24/2025 9:14 AM [facility] Blood Venous blood specimen / Unknown 06/24/2025 6:42 AM EDT 06/24/2025 7:36 AM EDT us Fitz Hernandez MD LAB BLOOD ORDERABLES Final Resul t [facility] [address] [place] [address], * Lipid panel with reflex to direct LDL (04/08/2025 6:36 AM EDT) Cholesterol 168 0 - 200 mg/dL LAB CHEMISTRY METHOD 04/08/2025 7:46 AM [facility] Triglycerides 47 0 - 150 mg/dL LAB CHEMISTRY METHOD 04/08/2025 7:46 AM [facility] HDL 59 >=40 mg/dL LAB CHEMISTRY METHOD 04/08/2025 7:46 AM T [facility] LDL Calculated 100 [...] 4.4 LAB CHEMISTRY METHOD 04/08/2025 7:46 AM EDT [facility] Blood Venous blood specimen / Unknown 04/08/2025 6:36 AM EDT 04/08/2025 7:05 AM EDT us Fitz Hernandez MD LAB BLOOD ORDERABLES Final Resul t [facility] [address] [place] [address], from Last 3 Months or Most Recently Relevant to Health Maintenance Insurance * Guarantor: Juan Diego Carey Account Type Relation to Patient Date of Phone Billing Address Personal/Family Self 1955 x24 (Home) [address] [place] [phone] MEDICARE Care Teams Hide Cleaner Relationship Specialty Start Date End Date Fitz Hernandez MD [address] [place] [address] Dr [address] [place], [place] PCP - General Internal Medicine 11/19/24
--- OUTSIDE RECORDS SUMMARY | 2025-09-01 03:49 | XMS_ITS | Encounter Summary ---
[facility] Address [address] [place] [address] Care Team Providers Care Hospice Care Transitions Coordinator Name Role Phone Fitz Hernandez MD Primary Care Provider [phone] Encounter Details Date Type Department Care Team (Late st Contact Info) Description 11/19/[address] 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 documented in this encounter Results * (ABNORMAL) Complete blood count (11/19/2024 6:55 AM EST) WBC 5.6 4.8 - 10.8 K/mcL LAB HEMETOLOGY METHOD 11/19/2024 8:09 AM [facility] RBC 3.60(L) 3.80 - 4.80 M/mcL LAB HEMETOLOGY METHOD 11/19/2024 8:09 AM [facility] Hemoglobin 11.6 11.5 - 16.0 g/dL LAB HEMETOLOGY METHOD 11/19/2024 8:09 AM [facility] Hematocrit 35.7 35.0 - 47.0 % LAB HEMETOLOGY METHOD 11/19/2024 8:09 AM [facility] MCV 100.3(H) 79.0 - 98.0 FL LAB HEMETOLOGY METHOD 11/19/2024 8:09 AM [facility] MCH 32.6(H) 27.0 - 32.0 pcg LAB HEMETOLOGY METHOD 11/19/2024 8:09 AM [facility] MCHC 32.5 32.0 - 37.0 g/dL LAB HEMETOLOGY METHOD 11/19/2024 8:09 AM [facility] RDW 11.9 11.0 - 15.0 % LAB HEMETOLOGY METHOD 11/19/2024 8:09 AM [facility] Platelets 220 130 - 400 K/mcL LAB HEMETOLOGY METHOD 11/19/2024 8:09 AM [facility] MPV 10.4 7.0 - 11.0 FL LAB HEMETOLOGY METHOD 11/19/2024 8:09 AM [facility] NRBC 0.0 <1.0 % LAB HEMETOLOGY METHOD 11/19/2024 8:09 AM [facility] NRBC Absolute 0.00 <0.10 K/mcL LAB HEMETOLOGY METHOD 11/19/2024 8:09 AM [facility] Blood Venous blood specimen / Unknown 11/19/2024 6:55 AM EST 11/19/2024 7:48 AM EST us Fitz Hernandez MD LAB BLOOD ORDERABLES Final Resul t [facility] [address] [place] [address], documented in this encounter Visit Diagnoses Diagnosis 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
--- OUTSIDE RECORDS SUMMARY | 2025-09-01 03:50 | XMS_ITS | Encounter Summary ---
Author Organization [facility] Address [address] [place] [address] Care Team Providers Care Head And Neck Surgeon Name Role Phone Fitz Hernandez MD Primary Care Provider Encounter Details Date Type Department Care Team (Late st Contact Info) Description 06/24/2025 Lab Requisition [facility] - Main Lab [address] [place] [address] Fitz Hernandez MD [address] [place] [address] [address] [place], [place] Age-related osteoporosis without current pathological fracture; Thyrotoxicosis, unspecified without thyrotoxic crisis or storm Social History Tobacco Use Types Packs/Day Years [...] Thyrotoxicosis, unspecified without thyrotoxic crisis or storm documented in this encounter Results * Thyroid stimulating hormone (06/24/2025 6:42 AM EDT) TSH 1.47 0.40 - 4.00 mcIU/mL LAB CHEMISTRY METHOD 06/24/2025 11:27 AM EDT [facility] ([facility]) [facility] Blood Venous blood specimen / Unknown 06/24/2025 6:42 AM EDT 06/24/2025 7:36 AM EDT us Fitz Hernandez MD LAB BLOOD ORDERABLES Final Resul t [facility] [address] [place] [address], [place] [phone] * Comprehensive metabolic panel (06/24/2025 6:42 AM EDT) Sodium 140 133 - 145 mmol/L LAB CHEMISTRY METHOD 06/24/2025 9:[address] [facility] Potassium 4.0 3.5 - 5.5 mmol/L LAB CHEMISTRY METHOD 06/24/2025 9:[address] [facility] Chloride 106 96 - 110 mmol/L LAB CHEMISTRY METHOD 06/24/2025 9:[address] [facility] CO2 30 21 - 32 mmol/L LAB CHEMISTRY METHOD 06/24/2025 9:[address] [facility] Anion Gap 4 3 - 11 LAB CHEMISTRY METHOD 06/24/2025 9:[address] [facility] Glucose 80 70 - 100 mg/dL LAB CHEMISTRY METHOD 06/24/2025 9:[address] [facility] BUN 15 5 - 25 mg/dL LAB CHEMISTRY METHOD 06/24/2025 9:[address] [facility] Creatinine 0.70 0.50 - 1.10 mg/dL LAB CHEMISTRY METHOD 06/24/2025 9:[address] [facility] eGFR 95 >=60 mL/min/1. 73m2 LAB CHEMISTRY METHOD 06/24/2025 9:[address] [facility] Comment:Calculation based on the Chronic Kidney Disease Epidemiology Collaboration (CKD-EPI) equation refit without adjustment for race. BUN/Creatinine Ratio 21.4 LAB CHEMISTRY METHOD 06/24/2025 9:[address] [facility] Calcium 9.2 8.5 - 10.5 mg/dL LAB CHEMISTRY METHOD 06/24/2025 9:[address] [facility] AST (SGOT) 21 10 - 42 unit/L LAB CHEMISTRY METHOD 06/24/2025 9:[address] [facility] ALT (SGPT) 25 10 - 60 unit/L LAB CHEMISTRY METHOD 06/24/2025 9:[address] [facility] Alkaline Phosphatase 101 42 - 121 unit/L LAB CHEMISTRY METHOD 06/24/2025 9:[address] [facility] Total Protein 7.1 6.0 - 8.0 g/dL LAB CHEMISTRY METHOD 06/24/2025 9:[address] [facility] Albumin 3.7 3.2 - 5.0 g/dL LAB CHEMISTRY METHOD 06/24/2025 9:[address] [facility] Total Bilirubin 0.6 0.0 - 1.4 mg/dL LAB CHEMISTRY METHOD 06/24/2025 9:[address] [facility] Blood Venous blood specimen / Unknown 06/24/2025 6:42 AM EDT 06/24/2025 7:36 AM EDT us Fitz Hernandez MD LAB BLOOD ORDERABLES Final Resul t [facility] [address] [place] [address], documented in this encounter Visit Diagnoses Diagnosis Age-related osteoporosis without current pathological fracture Thyrotoxicosis, unspecified without thyrotoxic crisis or storm documented in this encounter Care Teams Head And Neck Surgeon Relationship Specialty Start Date End Date Fitz Hernandez MD [address] [place] [address] [place] [address] PCP - General Internal Medicine 11/19/24 documented as of this encounter
--- OUTSIDE RECORDS SUMMARY | 2025-09-01 03:50 | XMS_ITS | Encounter Summary ---
[facility] Address [address] [place] [address] Care Team Providers Care Crew Director Name Role Phone Fitz Hernandez MD Primary Care Provider [phone] Encounter Details Date Type Department Care Team (Late st Contact Info) Description 12/15/2024 Lab Requisition [facility] - Main Lab [address] [place] [address] Fitz Hernandez MD [address] [place] [address] Dr [address] [place] Encounter for therapeutic drug level monitoring Social [...] LAB CHEMISTRY METHOD 12/15/2024 8:43 AM EST [facility] Potassium 4.2 3.5 - 5.5 mmol/L LAB CHEMISTRY METHOD 12/15/2024 8:43 AM EST [facility] Chloride 108 96 - 110 mmol/L LAB CHEMISTRY METHOD 12/15/2024 8:43 AM EST [facility] CO2 26 21 - 32 mmol/L LAB CHEMISTRY METHOD 12/15/2024 8:43 AM EST [facility] Anion Gap 6 3 - [...] MD LAB BLOOD ORDERABLES Final Resul t [facility] [address] [place] [address], documented in this encounter Visit Diagnoses Diagnosis Encounter for therapeutic drug level monitoring documented in this encounter Care Teams Crew Director Relationship Specialty Start Date End Date Fitz Hernandez MD [address] [place], [place] PCP - General Internal Medicine 11/19/24 documented as of this encounter
--- OUTSIDE RECORDS SUMMARY | 2025-09-01 03:51 | XMS_ITS | Encounter Summary ---
[facility] Address [address] [place] [address] Care Team Providers Care Rag Baler Name Role Phone Fizt Hernandez MD Primary Care Provider [phone] Encounter Details Date Type Department Care Team (Late st Contact Info) Description 05/26/2025 Lab Requisition [facility] - Main Lab [address] [place] [address] Fitz Hernandez MD [address] [place] [address] [address] [place] Age-related osteoporosis without current pathological fracture Social [...] CENTER LAB RBC 3.90 3.80 - 4.80 M/[facility] LAB HEMETOLOGY METHOD 05/26/2025 7:43 AM [...] % LAB HEMETOLOGY METHOD 05/26/2025 7:43 AM [facility] Platelets 196 130 - 400 K/mcL LAB HEMETOLOGY METHOD 05/26/2025 7:43 AM EDT [facility] LAB MPV 10.2 7.0 - 11.0 [place] LAB HEMETOLOGY METHOD 05/26/2025 7:43 AM EDT [facility] LAB NRBC 0.0 <1.0 % LAB HEMETOLOGY METHOD 05/26/2025 7:43 AM [facility] LAB NRBC Absolute 0.00 <0.10 K/mcL LAB HEMETOLOGY METHOD 05/26/2025 7:43 AM T [facility] LAB Blood Venous blood specimen / Unknown 05/26/2025 6:56 AM EDT 05/26/2025 7:17 AM EDT us Fitz Hernandez MD LAB BLOOD ORDERABLES Final Resul t [facility] [address] [place] [address], documented in this encounter Visit Diagnoses Diagnosis Age-related osteoporosis without current pathological fracture documented in this encounter Care Teams Rag Baler Relationship Specialty Start Date End Date Fitz Hernandez MD [address] [place] PCP - General Internal Medicine 11/19/24 documented as of this encounter
== END 2025-08-31 14:07 | disposition home or self-care (01) ==
LOC: HO.MAMMO 14:06
PROVIDERS: PCP Hospitalist; Visit Provider Hospitalist
DX: M81.0 Age-related osteoporosis without current pathological fracture (principal)
CPT/HCPCS: 77080

== ENCOUNTER → 2025-08-31 14:29 | Outpatient (BNV) | payer MEDICARE, MEDICAID, SELFPAY | PROVIDERS: PCP Hospitalist; Visit Provider Radiology Diagnostic Radiology | DX: E28.39 Other primary ovarian failure (principal) | CPT/HCPCS: 77080 ==